=== PATIENT | male | born 1950 | race Caucasian/White ===

== ENCOUNTER 2018-03-31 12:54 | Day surgery (SDC) | payer MEDICARE ==
[~2018-03-31] VITALS: Ht 185.4 cm; Wt 88.2 kg
[~2018-03-31 12:54] MED LIST: ALBU2.5V5 NEB; ALBU90OI INH; AZIT250 PO; Atarax10 MG PO; BREO ELLIPTA 11 EACH INH; CEFP200 PO; CEPH500 PO; COMBIVENT RESPIM4 GM INH; Cleocin HCl300 MG PO; Colace100 MG PO; GLIM4 PO; HYDACE5 PO; INS70/30PN; INSULANPEN SC; LEVSOD100 PO; LOSA50 PO; NADO20; Norco 5-325 Ta1 EACH PO; OLAN5 PO; OMEP10ER PO; OXYC30 PO; OXYC5 PO; Omeprazole20 M1 PO; PRED5 PO; PROM25 PO; RISP.25; Roxicodone5 MG PO; SPIR25 PO; SULTRIDS PO; Super Calcium600 MG PO; TACR1 PO; URSO300 PO; VITAMIN D34000 UNIT PO; Verotin-Gr Cap1 EACH PO; ZYRTEC10 M1 PO; Zofran Odt4 MG PO; Zofran Odt4 MG SL; Zofran Odt8 MG SL; [UNRECOGNIZED DRUG - OTHER] PO
== END 2018-03-31 15:40 | disposition home or self-care (01) ==
LOC: ORSCSDS 12:54
PROVIDERS: Internal Medicine Gastroenterology
PROC: 0D568ZZ Destruction of Stomach, Via Natural or Artificial Opening Endoscopic (ICD-10-PCS; principal; 2018-03-31 14:30)
DX: I85.00 Esophageal varices without bleeding (principal); K31.819 Angiodysplasia of stomach and duodenum without bleeding; K74.69 Other cirrhosis of liver; K76.6 Portal hypertension; K31.89 Other diseases of stomach and duodenum; E11.9 Type 2 diabetes mellitus without complications; Z94.4 Liver transplant status; E03.9 Hypothyroidism, unspecified; J45.909 Unspecified asthma, uncomplicated; I10 Essential (primary) hypertension; E78.00 Pure hypercholesterolemia, unspecified; Z79.4 Long term (current) use of insulin; Z79.899 Other long term (current) drug therapy; Z87.891 Personal history of nicotine dependence
CPT/HCPCS: 82947; J7120

== ENCOUNTER → 2018-05-26 | Outpatient (CLI) | payer MEDICARE | END | disposition home or self-care (01) | LOC: PLD 13:56 → LAB SHORT 13:56 | DX: M20.10 Hallux valgus (acquired), unspecified foot (principal); M79.672 Pain in left foot; E11.621 Type 2 diabetes mellitus with foot ulcer; M21.6X9 Other acquired deformities of unspecified foot | CPT/HCPCS: 88305; 88311 ==

== ENCOUNTER → 2018-09-15 | Outpatient (CLI) | payer MEDICARE ==
[~2018-09-15] MED LIST changes: +ALBU2.5V5 INH; -ALBU2.5V5 NEB; +AMOCLA875 PO; +Amaryl4 MG PO; +Augmentin 875-1 EACH PO; +BISA10S PR; +DOCU100 PO; +Fleet Enema132 ML PR; +GAVILAX17 GM PO; +Hydrocodone-Ap1 EA23 PO; -INS70/30PN; +NOVOLOG FL100 UNIT/1 SC; +VANCO 1.51.5 GM/250 IV; +VANCOMYCIN1.75 GM/17 IV; +VELTASSA8.4 GM PO; +Vsl#3 Capsule1 EACH PO
== END | disposition home or self-care (01) ==
LOC: LAB SHORT 16:28 → LAB 16:28
DX: L97.509 Non-pressure chronic ulcer of other part of unspecified foot with unspecified severity (principal)
CPT/HCPCS: 87070; 87075; 87205

== ENCOUNTER 2018-09-20 08:04 | Inpatient (IN) | payer MEDICARE ==
[~2018-09-20] VITALS: Ht 172.7 cm; Wt 74.8 kg
[~2018-09-20 08:04] MED LIST changes: -ALBU2.5V5 INH; -AMOCLA875 PO; -Amaryl4 MG PO; -Augmentin 875-1 EACH PO; -BISA10S PR; -DOCU100 PO; -Fleet Enema132 ML PR; -GAVILAX17 GM PO; -Hydrocodone-Ap1 EA23 PO; -INSULANPEN SC; -NOVOLOG FL100 UNIT/1 SC; -Super Calcium600 MG PO; -VANCO 1.51.5 GM/250 IV; -VANCOMYCIN1.75 GM/17 IV; -VELTASSA8.4 GM PO; -Verotin-Gr Cap1 EACH PO; -Vsl#3 Capsule1 EACH PO
[2018-09-20 10:02] LABS: Hematocrit 38.8 % (37.0-53.0); Hemoglobin 12.6 g/dL (13.5-17.5); Mean Corpuscular HGB Conc 32.5 g/dL (31.5-36.5); Mean Corpuscular Volume 96 fL (80-100); Mean Platelet Volume 11.3 fL (9.1-12.4); Platelet Count 89 K/mm3 (150-400); RDW Coefficient Variation 12.8 % (11.7-14.2); RDW Standard Deviation 44.9 fL (35.1-46.3); Red Blood Cell Count 4.06 M/mm3 (4.30-5.90); White Blood Cell Count 10.04 K/mm3 (4.00-11.30)
[2018-09-20 10:11] LABS: Albumin/Globulin Ratio 0.8 (0.8-1.8); Bun/Creatinine Ratio 14.9 (12.0-20.0); Calcium, Blood 8.7 mg/dL (8.5-10.1); Creatinine, Blood 1.88 mg/dL (0.60-1.20); Potassium, Blood 5.1 mmol/L (3.5-5.5)
[2018-09-20 10:13] LABS: BASOPHILS PERCENT AUTO 0 % (0-2); EOSINOPHILS ABSOLUTE AUTO 0.01 K/mm3 (0.00-0.68); EOSINOPHILS PERCENT AUTO 0 % (0-6); IMMATURE GRAN PERCENT AUTO 1 % (0-1); LYMPHOCYTES ABSOLUTE AUTO 0.63 K/mm3 (0.84-5.20); LYMPHOCYTES PERCENT AUTO 6 % (21-46); MONOCYTES ABSOLUTE AUTO 0.85 K/mm3 (0.16-1.47); MONOCYTES PERCENT AUTO 8 % (4-13); NEUTROPHILS PERCENT AUTO 85 % (41-73)
[2018-09-20 10:14] LABS: BASOPHILS ABSOLUTE AUTO 0.03 K/mm3 (0.00-0.23); IMMATURE GRAN ABSOLUTE AUTO 0.08 K/mm3 (0.00-0.10)
--- NOTE | 2018-09-20 17:15 | NUR ---
SHIFT SUMMARY ER ADMIT THIS SHIFT WITH R FOOT CELLULITIS R/T NAIL PUNCTURE WOUND. PT ALERT AND ORIENTED. DENIES NEED FOR PAIN MEDICATION. RECEIVED ABX IN ER. CELLULITIS TO R FOOT OUTLINED AND PHOTOS TAKEN OF PUNCTURE WOUND. IV IS SL. UP INDEP TO RESTROOM. USES CALL LIGHT APPROPRIATELY.
[2018-09-21 04:21] LABS: BASOPHILS ABSOLUTE AUTO 0.02 K/mm3 (0.00-0.23); BASOPHILS PERCENT AUTO 0 % (0-2); EOSINOPHILS ABSOLUTE AUTO 0.03 K/mm3 (0.00-0.68); EOSINOPHILS PERCENT AUTO 0 % (0-6); Hematocrit 32.9 % (37.0-53.0); Hemoglobin 10.7 g/dL (13.5-17.5); IMMATURE GRAN ABSOLUTE AUTO 0.03 K/mm3 (0.00-0.10); IMMATURE GRAN PERCENT AUTO 0 % (0-1); LYMPHOCYTES ABSOLUTE AUTO 0.99 K/mm3 (0.84-5.20); LYMPHOCYTES PERCENT AUTO 13 % (21-46); MONOCYTES ABSOLUTE AUTO 0.61 K/mm3 (0.16-1.47); MONOCYTES PERCENT AUTO 8 % (4-13); Mean Corpuscular HGB 30.2 pg (26.0-34.0); Mean Corpuscular HGB Conc 32.5 g/dL (31.5-36.5); Mean Platelet Volume 11.2 fL (9.1-12.4); NEUTROPHILS ABSOLUTE AUTO 6.01 K/mm3 (1.96-9.15); NEUTROPHILS PERCENT AUTO 78 % (41-73); Platelet Count 82 K/mm3 (150-400); RDW Coefficient Variation 12.5 % (11.7-14.2); RDW Standard Deviation 42.5 fL (35.1-46.3); Red Blood Cell Count 3.54 M/mm3 (4.30-5.90); White Blood Cell Count 7.69 K/mm3 (4.00-11.30)
[2018-09-21 04:42] LABS: Mean Corpuscular Volume 93 fL (80-100)
--- NOTE | 2018-09-21 07:43 | NUR ---
SHIFT SUMMARY PT RESTED WELL T/O NIGHT. AAOX4. DISCOMFORT CONTROLLED WITH 2 PAIN PILLS YESTARDAY EVENING. NO NAUSEA/EMESIS. PUNCTURE SITE TO RIGHT FOOT WITH BANDAID IN PLACE, NO INCREASE IN DRAINAGE THIS SHIFT. REDNESS TO RLE OUTLINE PER PREVIOUS DAY SHIFT RN, NO CHANGE THIS SHIFT. INDEPENDENT IN ROOM. GOOD PO INTAKE + OUTPUT. PT RESTING AT THIS TIME. CALL LIGHT IN REACH.
--- NOTE | 2018-09-21 12:18 | NUR ---
ROUNDING: MD IN TO SEE PATIENT. WILL AWAIT ANY NEW ORDERS. DOCTOR STATES PLAN FOR PODIATRY CONSULT.
--- NOTE | 2018-09-21 19:18 | NUR ---
PT HAS BEEN STABLE THIS SHIFT. BLOOD SUGARS NOT REQUIRING COVERAGE. NO WORSENING SWELLING OR REDNESS IN LEFT LEG. ABX CHANGED PER MD. PODIATRY CONSULT ORDERED, HOWEVER MUST BE CALLED TO OFFICE IN THE AM PER THE ANSWERING SERVICE. PT OOB INDEP WITH WALKER. SHOWER THIS AM. PUNCTURE SITE WITH BANDAID, NO DRAINAGE. TEDS TO BLE. EATING AND VOIDING WELL. PAIN MANAGED WITH PRN NORCO. PT USES CALL LIGHT APPROPRIATELY NEEDED.
[2018-09-22 04:06] LABS: BASOPHILS ABSOLUTE AUTO 0.01 K/mm3 (0.00-0.23); BASOPHILS PERCENT AUTO 0 % (0-2); EOSINOPHILS ABSOLUTE AUTO 0.06 K/mm3 (0.00-0.68); EOSINOPHILS PERCENT AUTO 1 % (0-6); Hemoglobin 10.8 g/dL (13.5-17.5); IMMATURE GRAN ABSOLUTE AUTO 0.02 K/mm3 (0.00-0.10); IMMATURE GRAN PERCENT AUTO 0 % (0-1); LYMPHOCYTES ABSOLUTE AUTO 0.89 K/mm3 (0.84-5.20); LYMPHOCYTES PERCENT AUTO 14 % (21-46); MONOCYTES ABSOLUTE AUTO 0.48 K/mm3 (0.16-1.47); MONOCYTES PERCENT AUTO 8 % (4-13); Mean Corpuscular HGB 31.3 pg (26.0-34.0); Mean Corpuscular HGB Conc 33.8 g/dL (31.5-36.5); Mean Corpuscular Volume 93 fL (80-100); Mean Platelet Volume 10.6 fL (9.1-12.4); NEUTROPHILS ABSOLUTE AUTO 4.91 K/mm3 (1.96-9.15); NEUTROPHILS PERCENT AUTO 77 % (41-73); Platelet Count 106 K/mm3 (150-400); RDW Coefficient Variation 12.4 % (11.7-14.2); RDW Standard Deviation 42.5 fL (35.1-46.3); Red Blood Cell Count 3.45 M/mm3 (4.30-5.90); White Blood Cell Count 6.37 K/mm3 (4.00-11.30)
[2018-09-22 04:19] LABS: Bun/Creatinine Ratio 22.3 (12.0-20.0); Calcium, Blood 8.5 mg/dL (8.5-10.1); Creatinine, Blood 1.84 mg/dL (0.60-1.20); Potassium, Blood 4.7 mmol/L (3.5-5.5)
--- NOTE | 2018-09-22 05:54 | NUR ---
SHIFT SUMMARY PT RESTED WELL T/O NIGHT. AAOX4. DISCOMFORT CONTROLLED WITH 1 PAIN PILL. NO NAUSEA/EMESIS. PUNCTURE SITE TO RIGHT FOOT WITH BANDAID IN PLACE, NO DRAINAGE NOTED THIS SHIFT. OUTLINE OF REDNESS STILL WITHIN AREA MARKED ON ADMISSION. IV ABX PER ORDERS. INDEPENDENT IN ROOM. GOOD PO INTAKE + OUTPUT. PT RESTING AT THIS TIME, CALL LIGHT IN REACH. BLANCAN.
--- NOTE | 2018-09-22 15:29 | NUR ---
DR VICTORIA IN TO SEE PT.
--- NOTE | 2018-09-22 17:05 | NUR ---
COMPLETED AND FAXED MRI SCREEN
--- NOTE | 2018-09-22 17:35 | NUR ---
SUMMARY NO ACUTE CHANGES T/O SHIFT. DR VICTORIA IN TO SEE PT THIS AFTERNOON. PLAN FOR MRI OF R FOOT THIS EVENING. IV ABX ADMINISTERED PER ORDERS. CALL LIGHT IN REACH. PT PLEASANT AND COOPERATIVE.
--- NOTE | 2018-09-23 08:02 | NUR ---
SUMMARY PT FEBRILE INITIALLY WITH ASSESSMENT. GAVE NORCO FOR PAIN AND FEVER. PT SLEPT QUIETLY MOST OF SHIFT. HOPING TO GO HOME TODAY.
[2018-09-23 08:52] LABS: Vancomycin, Trough 8.2 ug/mL (5.0-10.0)
--- NOTE | 2018-09-23 17:03 | NUR ---
SUMMARY NO ACUTE CHANGES T/O SHIFT. REDNESS APPEARS TO HAVE RECEDED SLIGHTLY FROM OUTLINED AREA. PT HAS DENIED NEED FOR PAIN MEDICATION. HAS SLEPT OFF AND ON T/O DAY. PLEASANT AND COOPERATIVE. CALL LIGHT IN REACH.
--- NOTE | 2018-09-24 07:34 | NUR ---
PT VSS T/O NIGHT. NO CHANGES IN REDNESS OR SWELLING TO R FOOT. SCANT DRNG TO PUNCTURE WOUND. PT MED FOR PAIN X1 W/REP RELIEF. PT UP INDEP IN ROOM, IS USING CALL LIGHT FOR ASSISTANCE. PLAN FOR PICC LINE PLACEMENT FOR OUT PT IV ABX. REP GIVEN TO DAY RN.
[2018-09-24 09:28] LABS: Vancomycin, Trough 10.8 ug/mL (5.0-10.0)
--- NOTE | 2018-09-24 12:04 | NUR ---
DR. VICTORIA PODIATRY ROUNDED ON PT. HE DEBRIDED PART OF THE FOOT WOUND AND PACKED IT WITH A SMALL AMOUNT OF GAUZE. BANDAID IN PLACE.
--- NOTE | 2018-09-24 14:52 | NUR ---
PICC LINE PLACED
[2018-09-24] MEDS ORDERED: VANCO 1.51.5 GM/250 IV ×2 (16:43)
[2018-09-24] MEDS ORDERED: Augmentin 875-1 EACH PO ×2 (16:44)
--- NOTE | 2018-09-24 17:07 | NUR ---
DISCHARGE OUTPATIENT ABX INFUSIONS SET UP, PICC LINE PLACED, PAIN WELL CONTROLLED. PT STATES UNDERSTANDING OF F/U WITH PCP AND ABI/ER FOR INFUSIONS. ESCORTED OUT VIA W/C.
[2018-10-30] MEDS ORDERED: ALBU2.5V5 INH ×2 (15:43)
[2018-10-30] MEDS ORDERED: Verotin-Gr Cap1 EACH PO ×2 (15:44)
[2018-10-30] MEDS ORDERED: INSULANPEN SC ×2 (15:44)
[2018-10-30] MEDS ORDERED: Super Calcium600 MG PO ×2 (15:44)
== END 2018-09-24 17:08 | disposition home or self-care (01) | DRG 571 ==
LOC: ER 08:04 → SURS 10:53
PROVIDERS: Family Medicine; Physician Assistant; ADMIT Hospitalist
PROC: 0JBQ0ZZ Excision of Right Foot Subcutaneous Tissue and Fascia, Open Approach (ICD-10-PCS; principal; 2018-09-24)
DX: L03.115 Cellulitis of right lower limb (principal); Z94.4 Liver transplant status; E11.42 Type 2 diabetes mellitus with diabetic polyneuropathy; S91.331A Puncture wound without foreign body, right foot, initial encounter; D63.1 Anemia in chronic kidney disease; N18.3 Chronic kidney disease, stage 3 (moderate); E11.22 Type 2 diabetes mellitus with diabetic chronic kidney disease; Z79.4 Long term (current) use of insulin; W45.0XXA Nail entering through skin, initial encounter; Y92.9 Unspecified place or not applicable
CPT/HCPCS: 36415; 36569; 73630; 73718; 80048; 80053; 80197; 80202; 82248; 82565; 82947; 83605; 83735; 84100; 84550; 85025; 87040; 94640; 94760; 96365; 96375; 99283-25; A9270-GY; C1751; J0878; J1170; J2405; J2543; J3370; J7040; J7050; J7507

== ENCOUNTER 2018-09-25 00:13 | Day surgery (SDC) | payer MEDICARE ==
[~2018-09-25 00:13] MED LIST changes: +Augmentin 875-1 EACH PO; +VANCO 1.51.5 GM/250 IV
== END 2018-09-25 10:22 | disposition home or self-care (01) ==
LOC: ATC 00:13
DX: L03.115 Cellulitis of right lower limb (principal); E11.22 Type 2 diabetes mellitus with diabetic chronic kidney disease; N18.3 Chronic kidney disease, stage 3 (moderate); D63.1 Anemia in chronic kidney disease; E11.40 Type 2 diabetes mellitus with diabetic neuropathy, unspecified; F17.210 Nicotine dependence, cigarettes, uncomplicated; Z88.8 Allergy status to other drugs, medicaments and biological substances; Z79.899 Other long term (current) drug therapy; Z79.4 Long term (current) use of insulin
CPT/HCPCS: 96365; 96366; J3370; J7050

== ENCOUNTER 2018-09-26 00:52 | Day surgery (SDC) | payer MEDICARE | END 2018-09-26 09:12 | disposition home or self-care (01) | LOC: ATC 00:52 | DX: L03.115 Cellulitis of right lower limb (principal); E11.42 Type 2 diabetes mellitus with diabetic polyneuropathy; E11.22 Type 2 diabetes mellitus with diabetic chronic kidney disease; N18.3 Chronic kidney disease, stage 3 (moderate); E07.9 Disorder of thyroid, unspecified; F17.210 Nicotine dependence, cigarettes, uncomplicated; D63.1 Anemia in chronic kidney disease; Z94.4 Liver transplant status; Z88.8 Allergy status to other drugs, medicaments and biological substances; Z79.899 Other long term (current) drug therapy; Z79.51 Long term (current) use of inhaled steroids; Z79.4 Long term (current) use of insulin | CPT/HCPCS: 96365; 96366; J3370; J7050 ==

== ENCOUNTER 2018-09-27 10:58 | Day surgery (SDC) | payer MEDICARE ==
[2018-09-27 11:46] LABS: Creatinine, Blood 1.71 mg/dL (0.60-1.20); Vancomycin, Trough 15.7 ug/mL (5.0-10.0)
== END 2018-09-27 14:40 | disposition home or self-care (01) ==
LOC: ATC 10:58
PROVIDERS: Family Medicine
DX: L03.115 Cellulitis of right lower limb (principal); E11.40 Type 2 diabetes mellitus with diabetic neuropathy, unspecified; E11.22 Type 2 diabetes mellitus with diabetic chronic kidney disease; N18.3 Chronic kidney disease, stage 3 (moderate); D63.1 Anemia in chronic kidney disease; E07.9 Disorder of thyroid, unspecified; F17.210 Nicotine dependence, cigarettes, uncomplicated; Z94.4 Liver transplant status; Z88.8 Allergy status to other drugs, medicaments and biological substances; Z79.899 Other long term (current) drug therapy; Z79.51 Long term (current) use of inhaled steroids; Z79.4 Long term (current) use of insulin
CPT/HCPCS: 80202; 82565; 96365; J3370; J7050

== ENCOUNTER 2018-09-28 13:03 | Day surgery (SDC) | payer MEDICARE | END 2018-09-28 14:57 | disposition home or self-care (01) | LOC: ATC 13:03 | DX: L03.115 Cellulitis of right lower limb (principal); E11.40 Type 2 diabetes mellitus with diabetic neuropathy, unspecified; E11.22 Type 2 diabetes mellitus with diabetic chronic kidney disease; N18.3 Chronic kidney disease, stage 3 (moderate); E07.9 Disorder of thyroid, unspecified; D63.1 Anemia in chronic kidney disease; F17.210 Nicotine dependence, cigarettes, uncomplicated; Z94.4 Liver transplant status; Z86.19 Personal history of other infectious and parasitic diseases; Z79.899 Other long term (current) drug therapy; Z79.51 Long term (current) use of inhaled steroids; Z79.4 Long term (current) use of insulin | CPT/HCPCS: 96365; 96366; J3370; J7050 ==

== ENCOUNTER 2018-09-29 00:42 | Day surgery (SDC) | payer MEDICARE | END 2018-09-29 12:07 | disposition home or self-care (01) | LOC: ATC 00:42 | DX: L03.115 Cellulitis of right lower limb (principal); E11.42 Type 2 diabetes mellitus with diabetic polyneuropathy; E11.22 Type 2 diabetes mellitus with diabetic chronic kidney disease; N18.3 Chronic kidney disease, stage 3 (moderate); E07.9 Disorder of thyroid, unspecified; D63.1 Anemia in chronic kidney disease; Z94.4 Liver transplant status; Z86.19 Personal history of other infectious and parasitic diseases; Z88.8 Allergy status to other drugs, medicaments and biological substances; Z79.899 Other long term (current) drug therapy; Z79.51 Long term (current) use of inhaled steroids; Z79.4 Long term (current) use of insulin | CPT/HCPCS: 96365; 96366; J3370; J7050 ==

== ENCOUNTER 2018-09-30 00:25 | Day surgery (SDC) | payer MEDICARE ==
[2018-10-30] MEDS ORDERED: ALBU2.5V5 INH ×2 (15:43)
[2018-10-30] MEDS ORDERED: Verotin-Gr Cap1 EACH PO ×2 (15:44)
[2018-10-30] MEDS ORDERED: INSULANPEN SC ×2 (15:44)
[2018-10-30] MEDS ORDERED: Super Calcium600 MG PO ×2 (15:44)
== END 2018-09-30 23:06 | disposition home or self-care (01) ==
LOC: ATC 00:25
DX: L03.115 Cellulitis of right lower limb (principal); E11.22 Type 2 diabetes mellitus with diabetic chronic kidney disease; N18.3 Chronic kidney disease, stage 3 (moderate); E11.40 Type 2 diabetes mellitus with diabetic neuropathy, unspecified; E07.9 Disorder of thyroid, unspecified; D63.1 Anemia in chronic kidney disease; Z94.4 Liver transplant status; Z86.19 Personal history of other infectious and parasitic diseases; Z88.8 Allergy status to other drugs, medicaments and biological substances; Z79.899 Other long term (current) drug therapy; Z79.51 Long term (current) use of inhaled steroids; Z79.4 Long term (current) use of insulin; Z79.891 Long term (current) use of opiate analgesic

== ENCOUNTER 2018-10-01 00:08 | Day surgery (SDC) | payer MEDICARE ==
[2018-10-30] MEDS ORDERED: ALBU2.5V5 INH ×2 (15:43)
[2018-10-30] MEDS ORDERED: INSULANPEN SC ×2 (15:44)
[2018-10-30] MEDS ORDERED: Super Calcium600 MG PO ×2 (15:44)
[2018-10-30] MEDS ORDERED: Verotin-Gr Cap1 EACH PO ×2 (15:44)
== END 2018-10-01 22:43 | disposition home or self-care (01) ==
LOC: ATC 00:08
DX: L03.115 Cellulitis of right lower limb (principal); E11.40 Type 2 diabetes mellitus with diabetic neuropathy, unspecified; E11.22 Type 2 diabetes mellitus with diabetic chronic kidney disease; N18.3 Chronic kidney disease, stage 3 (moderate); D63.1 Anemia in chronic kidney disease; E07.9 Disorder of thyroid, unspecified; Z79.899 Other long term (current) drug therapy; Z79.51 Long term (current) use of inhaled steroids; Z79.4 Long term (current) use of insulin; Z94.4 Liver transplant status; Z86.19 Personal history of other infectious and parasitic diseases

== ENCOUNTER 2018-10-17 11:55 | Emergency (ER) | payer MEDICARE ==
[~2018-10-17] VITALS: Ht 185.4 cm; Wt 83.9 kg
[2018-10-17 12:40] LABS: Calcium, Ionized (POC) 1.15 mmol/L (1.10-1.46); Chloride (POC) 113 mmol/L (98-108); Creatinine (POC) 2.9 mg/dL (0.8-1.3); Glucose (ISTAT POC) 123 mg/dL (70-99); Hemoglobin (POC) 10.9 g/dL (13.5-17.5); Potassium (POC) 6.7 mmol/L (3.5-5.5); Sodium (POC) 137 mmol/L (135-148); Total CO2 (POC) 16 mmol/L (21-32)
[2018-10-17 13:02] LABS: BASOPHILS ABSOLUTE AUTO 0.03 K/mm3 (0.00-0.23); BASOPHILS PERCENT AUTO 1 % (0-2); EOSINOPHILS ABSOLUTE AUTO 0.09 K/mm3 (0.00-0.68); EOSINOPHILS PERCENT AUTO 2 % (0-6); Hemoglobin 10.8 g/dL (13.5-17.5); IMMATURE GRAN ABSOLUTE AUTO 0.01 K/mm3 (0.00-0.10); IMMATURE GRAN PERCENT AUTO 0 % (0-1); LYMPHOCYTES ABSOLUTE AUTO 0.86 K/mm3 (0.84-5.20); LYMPHOCYTES PERCENT AUTO 15 % (21-46); MONOCYTES ABSOLUTE AUTO 0.37 K/mm3 (0.16-1.47); MONOCYTES PERCENT AUTO 6 % (4-13); Mean Corpuscular HGB 30.9 pg (26.0-34.0); Mean Corpuscular HGB Conc 32.7 g/dL (31.5-36.5); Mean Corpuscular Volume 95 fL (80-100); Mean Platelet Volume 11.6 fL (9.1-12.4); NEUTROPHILS ABSOLUTE AUTO 4.44 K/mm3 (1.96-9.15); NEUTROPHILS PERCENT AUTO 77 % (41-73); Platelet Count 104 K/mm3 (150-400); RDW Coefficient Variation 13.5 % (11.7-14.2); RDW Standard Deviation 46.7 fL (35.1-46.3); Red Blood Cell Count 3.49 M/mm3 (4.30-5.90)
[2018-10-17 13:09] LABS: Magnesium, Blood 1.9 mg/dL (1.6-2.4)
[2018-10-17 13:45] LABS: Albumin, Blood 3.5 g/dL (3.4-5.0); Albumin/Globulin Ratio 0.9 (0.8-1.8); Bilirubin, Total 0.3 mg/dL (0.1-1.0); Bun/Creatinine Ratio 15.4 (12.0-20.0); Calcium, Blood 8.4 mg/dL (8.5-10.1); Creatinine, Blood 2.66 mg/dL (0.60-1.20); Potassium, Blood 6.7 mmol/L (3.5-5.5); Total Protein, Blood 7.5 g/dL (6.4-8.2)
[2018-10-17 16:10] LABS: Calcium, Ionized (POC) 1.62 mmol/L (1.10-1.46); Chloride (POC) 110 mmol/L (98-108); Creatinine (POC) 2.8 mg/dL (0.8-1.3); Glucose (ISTAT POC) 105 mg/dL (70-99); Hemoglobin (POC) 10.2 g/dL (13.5-17.5); Potassium (POC) 6.4 mmol/L (3.5-5.5); Sodium (POC) 140 mmol/L (135-148); Total CO2 (POC) 23 mmol/L (21-32)
[2018-10-17 18:10] LABS: Calcium, Ionized (POC) 1.19 mmol/L (1.10-1.46); Chloride (POC) 109 mmol/L (98-108); Creatinine (POC) 2.5 mg/dL (0.8-1.3); Glucose (ISTAT POC) 135 mg/dL (70-99); Hemoglobin (POC) 9.9 g/dL (13.5-17.5); Potassium (POC) 5.5 mmol/L (3.5-5.5); Sodium (POC) 145 mmol/L (135-148); Total CO2 (POC) 26 mmol/L (21-32)
[2018-10-17] MEDS ORDERED: VELTASSA8.4 GM PO (18:16)
== END 2018-10-17 18:28 | disposition home or self-care (01) ==
LOC: ER 11:55
PROVIDERS: Emergency Medicine
DX: N17.9 Acute kidney failure, unspecified (principal); E87.5 Hyperkalemia; Z88.8 Allergy status to other drugs, medicaments and biological substances; Z79.899 Other long term (current) drug therapy; Z79.4 Long term (current) use of insulin
CPT/HCPCS: 36415; 80047; 80053; 80197; 82248; 83735; 84100; 84550; 85014; 85025; 93005; 93010; 96374; 96375; 96376; 99284-25; J0610; J1815

== ENCOUNTER 2018-10-30 14:32 | Inpatient (IN) | payer MEDICARE ==
[~2018-10-30] VITALS: Ht 185.4 cm; Wt 83.9 kg
[~2018-10-30 14:32] MED LIST changes: +VELTASSA8.4 GM PO
[2018-10-30] MEDS ORDERED: Amaryl4 MG PO (14:57)
[2018-10-30 15:28] LABS: BASOPHILS ABSOLUTE AUTO 0.03 K/mm3 (0.00-0.23); BASOPHILS PERCENT AUTO 1 % (0-2); EOSINOPHILS ABSOLUTE AUTO 0.05 K/mm3 (0.00-0.68); EOSINOPHILS PERCENT AUTO 1 % (0-6); Hematocrit 30.7 % (37.0-53.0); Hemoglobin 10.2 g/dL (13.5-17.5); IMMATURE GRAN ABSOLUTE AUTO 0.01 K/mm3 (0.00-0.10); IMMATURE GRAN PERCENT AUTO 0 % (0-1); LYMPHOCYTES ABSOLUTE AUTO 0.85 K/mm3 (0.84-5.20); LYMPHOCYTES PERCENT AUTO 15 % (21-46); MONOCYTES PERCENT AUTO 9 % (4-13); Mean Corpuscular HGB 30.4 pg (26.0-34.0); Mean Corpuscular HGB Conc 33.2 g/dL (31.5-36.5); Mean Platelet Volume 10.5 fL (9.1-12.4); NEUTROPHILS ABSOLUTE AUTO 4.39 K/mm3 (1.96-9.15); NEUTROPHILS PERCENT AUTO 75 % (41-73); Platelet Count 141 K/mm3 (150-400); RDW Coefficient Variation 12.9 % (11.7-14.2); RDW Standard Deviation 43.1 fL (35.1-46.3); Red Blood Cell Count 3.35 M/mm3 (4.30-5.90); White Blood Cell Count 5.83 K/mm3 (4.00-11.30)
[2018-10-30 15:33] LABS: Mean Corpuscular Volume 92 fL (80-100)
[2018-10-30 15:41] LABS: Albumin, Blood 2.8 g/dL (3.4-5.0); Albumin/Globulin Ratio 0.6 (0.8-1.8); Bilirubin, Total 0.3 mg/dL (0.1-1.0); Bun/Creatinine Ratio 18.5 (12.0-20.0); Calcium, Blood 8.7 mg/dL (8.5-10.1); Creatinine, Blood 1.62 mg/dL (0.60-1.20); Globulin, Blood 4.8 g/dL (2.2-4.0); Potassium, Blood 4.5 mmol/L (3.5-5.5); Total Protein, Blood 7.6 g/dL (6.4-8.2)
[2018-10-30] MEDS ORDERED: Hydrocodone-Ap1 EA23 PO (15:42)
[2018-10-30] MEDS ORDERED: ALBU2.5V5 INH (15:43)
[2018-10-30] MEDS ORDERED: Verotin-Gr Cap1 EACH PO (15:44)
[2018-10-30] MEDS ORDERED: INSULANPEN SC (15:44)
[2018-10-30] MEDS ORDERED: Super Calcium600 MG PO (15:44)
[2018-10-30] MEDS ORDERED: NOVOLOG FL100 UNIT/1 SC (15:45)
--- NOTE | 2018-10-30 19:07 | NUR ---
PT TRANSFERRED FROM ED. LINE DRAWN ON WOUND, DISCUSSED WITH PAIRER SUBSTANDARD AND NIGHT RN THAT GAS WAS SEEN ON XRAY AND TO MONITOR LINE AND MEASUREMENTS OF FOOT CIRCUMFERENCE. FAMILY AT BEDSIDE
--- NOTE | 2018-10-31 05:02 | NUR ---
SHIFT SUMMARY PT PAIN TX PER EMAR. PT NPO SINCE MIDNIGHT. PT HAD NO ISSUES NOTED DURING SHIFT. PT FOOT SHOWS NO SIGNS OF INCREASED SWELLING OR INFECTION SPREAD. PT CURRENTLY SLEEPING IN NO DISTRESS. CALL LIGHT IN REACH.
--- NOTE | 2018-10-31 12:30 | NUR ---
PT TRANSPORTED TO DAY SURGERY VIA STRETCHER ACCOMPANIED BY NERY MEADE AND PT'S SPOUSE.
--- NOTE | 2018-10-31 12:44 | NUR ---
History, Chart, Medications and Allergies reviewed before start of procedure. Patient confirms NPO status and agrees with scheduled surgery. at bedside.
--- NOTE | 2018-10-31 13:57 | NUR ---
PT CURRENTLY OUT OF ROOM FOR I&D.
--- NOTE | 2018-10-31 14:20 | NUR ---
ASSUMED CARE OF PATIENT, REPORT FROM ALON Pitts RN.
--- NOTE | 2018-10-31 16:05 | NUR ---
ARRIVED FROM PACU VIA STRETCHER AWAKE OX3 AND IN NO ACUTE DISTRESS. RIGHT FOOT CARRIE BANDAGE CLEAN DRY AND INTACT. DENIES ANY PAIN AT THIS TIME. FAMILY AT BEDSIDE.
--- NOTE | 2018-10-31 17:37 | NUR ---
SPOUSE AT BEDSIDE PT RESTING WITH EYES CLOSED. DENIES ANY DISTRESS OR PAIN. DRANK APPLE JUICE AND ATE CRACKERS. VSS. AFEBRILE.
--- NOTE | 2018-10-31 18:06 | NUR ---
PT'S WALLET RETURNED TO SECURITY DUE TO DELAY IN PATIENT TRANSPORT TO HOME. RECEIVED BY MONICA WATER PROOFER.
--- NOTE | 2018-11-01 04:05 | NUR ---
SHIFT SUMMARY: PT IS ALERT AND ORIENTED. PT IS CALM AND COOPERATIVE WITH CARE. PT CALLS APPROPRIATELY. PT IS NON-WEIGHT BEARING ON HIS R. FOOT DUE TO RECENT SURGERY, NOT OUT OF BED OVERNIGHT. PT REPORTS PAIN IN THE R. FOOT, MEDICATING PER EMAR. PT DENIES NAUSEA, VOMITING, AND SOB. FAMILY IN VISITING AT THE START OF SHIFT. PT SLEPT INTERMITTENTLY THROUGHOUT THE NIGHT. DRESSING CLEAN, DRY, AND INTACT. NO ACUTE CHANGES OR COMPLICATIONS THIS SHIFT. WILL CONTINUE TO MONITOR.
[2018-11-01 08:42] LABS: BASOPHILS ABSOLUTE AUTO 0.02 K/mm3 (0.00-0.23); BASOPHILS PERCENT AUTO 0 % (0-2); EOSINOPHILS ABSOLUTE AUTO 0.16 K/mm3 (0.00-0.68); EOSINOPHILS PERCENT AUTO 3 % (0-6); Hematocrit 26.5 % (37.0-53.0); Hemoglobin 8.4 g/dL (13.5-17.5); IMMATURE GRAN ABSOLUTE AUTO 0.02 K/mm3 (0.00-0.10); IMMATURE GRAN PERCENT AUTO 0 % (0-1); LYMPHOCYTES ABSOLUTE AUTO 0.76 K/mm3 (0.84-5.20); LYMPHOCYTES PERCENT AUTO 13 % (21-46); MONOCYTES ABSOLUTE AUTO 0.39 K/mm3 (0.16-1.47); MONOCYTES PERCENT AUTO 7 % (4-13); Mean Corpuscular HGB 29.2 pg (26.0-34.0); Mean Corpuscular HGB Conc 31.7 g/dL (31.5-36.5); Mean Corpuscular Volume 92 fL (80-100); Mean Platelet Volume 9.6 fL (9.1-12.4); NEUTROPHILS ABSOLUTE AUTO 4.61 K/mm3 (1.96-9.15); NEUTROPHILS PERCENT AUTO 77 % (41-73); Platelet Count 135 K/mm3 (150-400); RDW Coefficient Variation 12.7 % (11.7-14.2); RDW Standard Deviation 42.7 fL (35.1-46.3); Red Blood Cell Count 2.88 M/mm3 (4.30-5.90); White Blood Cell Count 5.96 K/mm3 (4.00-11.30)
[2018-11-01 08:59] LABS: Albumin, Blood 2.5 g/dL (3.4-5.0); Albumin/Globulin Ratio 0.6 (0.8-1.8); Bilirubin, Total 0.3 mg/dL (0.1-1.0); Bun/Creatinine Ratio 15.3 (12.0-20.0); Calcium, Blood 8.2 mg/dL (8.5-10.1); Creatinine, Blood 1.57 mg/dL (0.60-1.20); Globulin, Blood 4.4 g/dL (2.2-4.0); Potassium, Blood 4.7 mmol/L (3.5-5.5); Total Protein, Blood 6.9 g/dL (6.4-8.2)
--- NOTE | 2018-11-01 16:30 | NUR ---
PT IS A/OX3, PLEASANT AND COOPERATIVE, THE PT IS UP WITH ASSIST NON-WEIGHT BEARING ON THE RIGHT FOOT, THE PT WAS MEDICATED FOR PAIN T/O THE DAY, THE PT DENIED N/V, TODAY THE PT WAS ABLE TO GET OUT OF BED AND AMBULATE SOMEWHAT USEING THE FWW ACCOMPANIED BY THE PHYSICAL THERAPIST, THE PT APPEARS TO BE BREATHING EASILY AT THIS TIME ON RA, CALL LIGHT IN REACH, WILL CONTINUE TO MONITOR FOR CHANGES
--- NOTE | 2018-11-02 04:29 | NUR ---
SHIFT SUMMARY: PT IS ALERT AND ORIENTED. PT IS CALM AND COOPERATIVE WITH CARE. PT CALLS APPROPRIATELY. PT NOT OUT OF BED OVERNIGHT. PT CONTINUES TO HAVE R. FOOT PAIN BUT IT HAS BEEN BETTER CONTROLLED THIS SHIFT THAN LAST, MEDICATING PER EMAR. PT DENIES NAUSEA, VOMITING, AND SOB. PT SLEPT MUCH OF THE NIGHT WHEN NOT DISTURBED. NO ACUTE CHANGES OR COMPLICATIONS THIS SHIFT. BED IN LOW POSITION, CALL LIGHT WITHIN REACH. WILL CONTINUE TO MONITOR.
[2018-11-02 14:23] LABS: Creatinine, Blood 1.66 mg/dL (0.60-1.20); Vancomycin, Trough 12.3 ug/mL (5.0-10.0)
--- NOTE | 2018-11-02 18:04 | NUR ---
PT IS A/OX3, PLEASANT AND COOPERATIVE, THE PT WAS UP INTO THE CHAIR TODAY, THE PT WAS GIVEN AND INSTRUCTED TO USE AN INCENTIVE SPIROMETER, THE PT WAS MEDICATED FOR RIGHT FOOT PAIN X 4 TODAY, THE PT APPEARS TO BE BREATHING EASILY ON RA AT THIS TIME, THE PT HAD VISITOR TODAY, CALL LIGHT IN REACH, WILL CONTINUE TO MONITOR AND ASSESS FOR CHANGES
[2018-11-03 04:43] LABS: BASOPHILS ABSOLUTE AUTO 0.02 K/mm3 (0.00-0.23); BASOPHILS PERCENT AUTO 0 % (0-2); EOSINOPHILS ABSOLUTE AUTO 0.12 K/mm3 (0.00-0.68); EOSINOPHILS PERCENT AUTO 3 % (0-6); Hematocrit 22.6 % (37.0-53.0); Hemoglobin 7.3 g/dL (13.5-17.5); IMMATURE GRAN ABSOLUTE AUTO 0.01 K/mm3 (0.00-0.10); IMMATURE GRAN PERCENT AUTO 0 % (0-1); LYMPHOCYTES ABSOLUTE AUTO 0.82 K/mm3 (0.84-5.20); LYMPHOCYTES PERCENT AUTO 18 % (21-46); MONOCYTES PERCENT AUTO 9 % (4-13); Mean Corpuscular HGB 29.7 pg (26.0-34.0); Mean Corpuscular HGB Conc 32.3 g/dL (31.5-36.5); Mean Corpuscular Volume 92 fL (80-100); Mean Platelet Volume 10.2 fL (9.1-12.4); NEUTROPHILS ABSOLUTE AUTO 3.31 K/mm3 (1.96-9.15); NEUTROPHILS PERCENT AUTO 71 % (41-73); Platelet Count 121 K/mm3 (150-400); RDW Coefficient Variation 12.5 % (11.7-14.2); RDW Standard Deviation 42.2 fL (35.1-46.3); Red Blood Cell Count 2.46 M/mm3 (4.30-5.90); White Blood Cell Count 4.68 K/mm3 (4.00-11.30)
[2018-11-03 05:05] LABS: Albumin, Blood 2.1 g/dL (3.4-5.0); Albumin/Globulin Ratio 0.5 (0.8-1.8); Bilirubin, Total 0.4 mg/dL (0.1-1.0); Bun/Creatinine Ratio 14.5 (12.0-20.0); Calcium, Blood 8.1 mg/dL (8.5-10.1); Creatinine, Blood 1.59 mg/dL (0.60-1.20); Globulin, Blood 4.1 g/dL (2.2-4.0); Potassium, Blood 4.2 mmol/L (3.5-5.5); Total Protein, Blood 6.2 g/dL (6.4-8.2)
--- NOTE | 2018-11-03 05:16 | NUR ---
SHIFT SUMMARY: PT IS ALERT AND ORIENTED. PT IS CALM AND COOPERATIVE WITH CARE. PT CALLS APPROPRIATELY. PT NOT OUT OF BED OVERNIGHT. PT CONTINUES TO HAVE R. FOOT PAIN, MEDICATING PER EMAR. PT DENIES NAUSEA, VOMITING, AND SOB. PT SLEPT MUCH OF THE NIGHT WHEN NOT DISTURBED. FAMILY IN VISITING AT THE START OF THE NIGHT. NO ACUTE CHANGES OR COMPLICATIONS THIS SHIFT. BED IN LOW POSITION, CALL LIGHT WITHIN REACH. WILL REPORT TO DAY NURSE.
--- NOTE | 2018-11-03 13:44 | NUR ---
STARTED I UNIT PRBS SO FAR VS WNL PT TOLERATING WELL BREATHING EASILY
[2018-11-03 16:33] LABS: Hematocrit 24.1 % (37.0-53.0)
--- NOTE | 2018-11-03 18:11 | NUR ---
PT IS A/OX3, PLEASANT AND COOPERATIVE, THE PT IS UP WITH ASSIST, THE PT TODAY WAS UP USEING THE FWW IN HIS ROOM WITH THE OCUPATIONAL THERAPIST, AND WORKED WITH THE PHYSICAL THERAPIST IN HIS BED, THE PT WAS UP IN THE CHAIR FOR A COULPLE HOURS FOR LUNCH, THE PT USED HIS INCENTIVE SPIROMETER, THE PT RECIEVED 1 UNIT PRBC'S AND TOLERATED THE TRANSFUSION WELL, CALL LIGHT IN REACH, WILL CONTINUE TO MONITOR AND ASSESS FOR CHANGES
--- NOTE | 2018-11-04 04:05 | NUR ---
SHIFT SUMMARY PT REMAINS ALERT AND ORIENTED. DILAUDID WAS GIVEN TO PT FOR PAIN TO GOOD EFFECT. PT HAD NO OTHER COMPLAINTS FROM THE PT AT THIS TIME. VSS. WILL CONTINUE TO MONITOR.
[2018-11-04 07:34] LABS: Hematocrit 26.9 % (37.0-53.0)
[2018-11-04 08:04] LABS: Bun/Creatinine Ratio 15.2 (12.0-20.0); Calcium, Blood 8.4 mg/dL (8.5-10.1); Creatinine, Blood 1.58 mg/dL (0.60-1.20); Potassium, Blood 4.6 mmol/L (3.5-5.5)
[2018-11-04 16:09] LABS: Vancomycin, Trough 17.6 ug/mL (5.0-10.0)
--- NOTE | 2018-11-04 18:34 | NUR ---
SHIFT SUMMARY MD AWARE OF NOT YET HAVING A PICC LINE. HAS BEEN UP TO AMBULATE WITH P.T. USING FWW AND FOLLOWING NON WEIGHT BEARING PRECAUTIONS. DOES STATE PAIN IN R FOOT GETS BAD BUT ORAL PAIN MEDS GIVEN DID REDUCE PAIN WELL. DRESSING IN PLACE AND C/D/I. DR. ARMIREZ IN TO SEE PT AND STATED HE DIDN'T WANT DRESSING CHANGED BUT TO LEAVE IT ALONE FOR NOW. NO FEVERS.
--- NOTE | 2018-11-05 07:20 | NUR ---
NOC SHIFT SUMMARY PT PLEASANT AND COOPERATIVE WITH CARE. PARTIAL SURG REMOVAL OF R FOOT, DRESSING C/D/I. VSS. PT WAS TREATED FOR PAIN ONCE THIS NIGHT AND WAS ABLE TO SLEEP THE REST OF THE NIGHT. AWAKES EASILY TO VOICE. NO ACUTE CHANGES OVER THE NIGHT. APPEARS IN NO ACUTE DISTRESS. REPORT TO ONCOMING RN.
--- NOTE | 2018-11-05 15:01 | NUR ---
Echocardiogram completed.
--- NOTE | 2018-11-05 19:18 | NUR ---
shift summary pt reports he has no appetite today. states he feels very constipated. had asked for a shower after lunch but then changed his mind. spoke with this evening when pt didn't have bm today and obtained order for lactulose. dressing to r foot c/d/i.
--- NOTE | 2018-11-06 05:53 | NUR ---
SHIFT SUMMARY PT ADMITTED FOR OSTEOMYELITIS OF THE R FOOT. CONTACT ISOLATION FOR MRSA IN ABCESS/BLOOD. FULL CODE. ADA DIET. NON-WEIGHT BEARING R LEG. ELEVATE R LEG. PICC LINE ORDERED FOR LONG-TERM ANTIBIOTIC TREATMENT OUTPATIENT. CBG BEFORE MEALS. LACTULOSE X2 THIS SHIFT ORDERED TO ASSIST WITH CONSTIPATION, NO RESULTS SO FAR THIS SHIFT. PT HAS APPEARED TO TOLLERATE WELL. PT PREFERS TO HAVE DOOR CLOSED AND TO NOT BE DESTURBED MUCH POSSIBLE, CLUSTERED CARE WHEN POSSIBLE. PT HAS APPEARED TO SLEEP COMFORTABLY MOST OF THE NIGHT WITH NO APPARENT SIGNS OF ACUTE DISTRESS SO FAR THIS SHIFT. ABLE TO MAKE NEEDS KNOWN AND CALL LIGHT IN REACH.
--- NOTE | 2018-11-06 18:21 | NUR ---
SHIFT SUMMARY PT LAYING IN HIS ROOM IN THE DARK THIS MORNING DECLINING BREAKFAST STATING HE JUST CAN'T EAT DUE TO BEING SO CONSTIPATED. BOWEL CARE BEING PROVIDED. PRUNES LEFT AT BEDSIDE. ENCOURAGED DRINKING H2O. DISCUSSED TAKING A SHOWER WELL. DID HAVE A SMALL BM WHILE WORKING WITH P.T. AND AGAIN AFTER HIS SHOWER BUT ONLY AFTER HE GOT A SUPPOSITORY DID HE STATE HE HAD RESULTS WITH A MEDIUM HARD BM WHICH HELPED HIM FEEL BETTER AND HE DID EAT SUPPER. SHOWER WAS TAKEN AND HE REPORTS FEELING BETTER AFTER THAT WELL. DRESSING TO RLE REMAINS INTACT WITH NO BREAKTHROUGH DRAINAGE.
--- NOTE | 2018-11-07 04:23 | NUR ---
SHIFT SUMMARY: PT IS ALERT AND ORIENTED. PT IS CALM AND COOPERATIVE WITH CARE. PT CALLS APPROPRIATELY. PT REPORTS ONGOING R. FOOT PAIN, MEDICATING PER EMAR. PT DENIES NAUSEA, VOMIITNG, AND SOB. PT TO HAVE PICC PLACED FOR OUTPT ANTIBIOTICS. PT SLEPT MUCH OF THE NIGHT WHEN NOT DISTURBED. NO ACUTE CHANGES OR COMPLICATIONS THIS SHIFT. BED IN LOW POSITION, CALL LIGHT WITHIN REACH. WILL REPORT TO DAY NURSE.
[2018-11-07] MEDS ORDERED: BISA10S PR (13:36)
[2018-11-07] MEDS ORDERED: AMOCLA875 PO (13:36)
[2018-11-07] MEDS ORDERED: DOCU100 PO (13:37)
[2018-11-07] MEDS ORDERED: OXYC5 PO (13:38)
[2018-11-07] MEDS ORDERED: Vsl#3 Capsule1 EACH PO (13:38)
[2018-11-07] MEDS ORDERED: GAVILAX17 GM PO (13:39)
[2018-11-07] MEDS ORDERED: Fleet Enema132 ML PR (13:40)
[2018-11-07] MEDS ORDERED: VANCOMYCIN1.75 GM/17 IV (13:40)
[2018-11-07 14:55] LABS: Creatinine, Blood 1.24 mg/dL (0.60-1.20); Vancomycin, Trough 21.4 ug/mL (5.0-10.0)
--- NOTE | 2018-11-07 15:00 | NUR ---
VANCO HELD 1500 VANCO DOSE HELD TILL 1600 DUE TO SUPRATHERAPUTIC LEVEL OF 21.4. CHRISTO VALDIVIA INSTRUCTED TO START VANCO AT 1600 & LET RUN UNTIL DONE OR UNTIL PT LEAVES. WILL CONTINUE TO MONITOR.
--- NOTE | 2018-11-07 15:26 | NUR ---
REPORT CALLED TO NURSE FELIX. FELIX DENIED ANY FURTHER QUESTIONS. FELIX INFORMED THAT PT IS BEING SENT WITH A PG INSTEAD OF A PICC. 4 DIFFERENT NURSES ATTEMPTED A PICC & FAILED AT ACCESS. FOR THIS REASON A PG WAS PLACE. PT WILL NEED TO RETURN TO [facility] FOR NEW PG AFTER 29 DAYS.
--- NOTE | 2018-11-07 16:30 | NUR ---
PT DISCHARGED PT DISCHARGED AT 1627. PT IN STABLE CONDITION WITH VSS. PT RECIEVED 34CC OF PM ABELO. PT DENIES QUESTIONS AT THIS TIME. REPORT CALLED TO UV. PG PATENT IN L UA. PT TRANSPORTED VIA [facility].
== END 2018-11-07 16:27 | DRG 239 ==
LOC: ER 14:32 → MEDS 17:49
PROVIDERS: Emergency Medicine; Family Medicine; Podiatrist Foot & Ankle Surgery; ADMIT Hospitalist
PROC: 0Y6M0Z9 Detachment at Right Foot, Partial 1st Ray, Open Approach (ICD-10-PCS; principal; 2018-10-30)
PROC: 0Y6M0ZB Detachment at Right Foot, Partial 2nd Ray, Open Approach (ICD-10-PCS; 2018-10-30)
PROC: 0Y6M0ZC Detachment at Right Foot, Partial 3rd Ray, Open Approach (ICD-10-PCS; 2018-10-30)
PROC: 0Y6M0ZD Detachment at Right Foot, Partial 4th Ray, Open Approach (ICD-10-PCS; 2018-10-30)
PROC: 0Y6M0ZF Detachment at Right Foot, Partial 5th Ray, Open Approach (ICD-10-PCS; 2018-10-30)
DX: E11.52 Type 2 diabetes mellitus with diabetic peripheral angiopathy with gangrene (principal); A48.0 Gas gangrene; Z94.4 Liver transplant status; M86.171 Other acute osteomyelitis, right ankle and foot; E11.621 Type 2 diabetes mellitus with foot ulcer; Z79.4 Long term (current) use of insulin; Z89.422 Acquired absence of other left toe(s); E11.40 Type 2 diabetes mellitus with diabetic neuropathy, unspecified; N18.3 Chronic kidney disease, stage 3 (moderate); E11.22 Type 2 diabetes mellitus with diabetic chronic kidney disease; F17.210 Nicotine dependence, cigarettes, uncomplicated; D63.1 Anemia in chronic kidney disease; F19.94 Other psychoactive substance use, unspecified with psychoactive substance-induced mood disorder; K59.00 Constipation, unspecified; Z79.84 Long term (current) use of oral hypoglycemic drugs; B95.62 Methicillin resistant Staphylococcus aureus infection as the cause of diseases classified elsewhere; L97.514 Non-pressure chronic ulcer of other part of right foot with necrosis of bone
CPT/HCPCS: 36415; 36430; 73630; 80048; 80053; 80202; 82565; 82947; 83036; 83605; 85014; 85018; 85025; 85651; 86140; 86850; 86870; 86900; 86901; 86902; 86905; 86922; 87040; 87070; 87075; 87077; 87147; 87185; 87186; 87205; 88307; 88311; 93005; 93010; 93306; 96361; 96365; 96375; 97110; 97116; 97161; 97166; 97530; 97535; 99284-25; J0171; J0692; J1170; J2405; J2543; J2704; J2765; J3010; J3370; J7050; J7120; J7507; P9016

== ENCOUNTER 2018-11-26 00:02 | Day surgery (SDC) | payer MEDICARE ==
[~2018-11-26 00:02] MED LIST changes: +ALBU2.5V5 INH; +AMOCLA875 PO; +Amaryl4 MG PO; +BISA10S PR; +DOCU100 PO; +Fleet Enema132 ML PR; +GAVILAX17 GM PO; +Hydrocodone-Ap1 EA23 PO; +INSULANPEN SC; +NOVOLOG FL100 UNIT/1 SC; +Super Calcium600 MG PO; +VANCOMYCIN1.75 GM/17 IV; +Verotin-Gr Cap1 EACH PO; +Vsl#3 Capsule1 EACH PO
[2018-11-26 14:42] LABS: Creatinine, Blood 1.82 mg/dL (0.60-1.20); Vancomycin, Trough 18.9 ug/mL (5.0-10.0)
== END 2018-11-26 15:18 | disposition home or self-care (01) ==
LOC: ATC 00:02
PROVIDERS: Family Medicine
DX: R78.81 Bacteremia (principal); B95.62 Methicillin resistant Staphylococcus aureus infection as the cause of diseases classified elsewhere; E11.22 Type 2 diabetes mellitus with diabetic chronic kidney disease; N18.3 Chronic kidney disease, stage 3 (moderate); D63.1 Anemia in chronic kidney disease; E11.40 Type 2 diabetes mellitus with diabetic neuropathy, unspecified; K59.00 Constipation, unspecified; E03.9 Hypothyroidism, unspecified; Z88.8 Allergy status to other drugs, medicaments and biological substances; Z89.431 Acquired absence of right foot; Z94.4 Liver transplant status
CPT/HCPCS: 36592; 80202; 82565

== ENCOUNTER 2018-11-27 00:30 | Day surgery (SDC) | payer MEDICARE | END 2018-11-27 15:25 | disposition home or self-care (01) | LOC: ATC 00:30 | DX: R78.81 Bacteremia (principal); B95.62 Methicillin resistant Staphylococcus aureus infection as the cause of diseases classified elsewhere; E11.22 Type 2 diabetes mellitus with diabetic chronic kidney disease; N18.3 Chronic kidney disease, stage 3 (moderate); D63.1 Anemia in chronic kidney disease; E11.40 Type 2 diabetes mellitus with diabetic neuropathy, unspecified; Z89.431 Acquired absence of right foot; Z88.8 Allergy status to other drugs, medicaments and biological substances; Z79.899 Other long term (current) drug therapy; Z79.4 Long term (current) use of insulin | CPT/HCPCS: 96365; 96366; J3370; J7050 ==

== ENCOUNTER 2018-11-29 13:13 | Day surgery (SDC) | payer MEDICARE ==
[2018-11-29 14:15] LABS: Glomerular Filtration Rate 50 (60-)
== END 2018-11-29 14:54 | disposition home or self-care (01) ==
LOC: ATC 13:13
PROVIDERS: Family Medicine
DX: R78.81 Bacteremia (principal); B95.62 Methicillin resistant Staphylococcus aureus infection as the cause of diseases classified elsewhere; E11.22 Type 2 diabetes mellitus with diabetic chronic kidney disease; N18.3 Chronic kidney disease, stage 3 (moderate); D63.1 Anemia in chronic kidney disease; E11.40 Type 2 diabetes mellitus with diabetic neuropathy, unspecified; K59.00 Constipation, unspecified; Z88.8 Allergy status to other drugs, medicaments and biological substances; Z89.431 Acquired absence of right foot; Z94.4 Liver transplant status
CPT/HCPCS: 80202; 82565; 96365; 96366; J3370; J7050

== ENCOUNTER 2018-12-01 00:05 | Day surgery (SDC) | payer MEDICARE | END 2018-12-01 15:13 | disposition home or self-care (01) | LOC: ATC 00:05 | DX: R78.81 Bacteremia (principal); B95.62 Methicillin resistant Staphylococcus aureus infection as the cause of diseases classified elsewhere; E11.22 Type 2 diabetes mellitus with diabetic chronic kidney disease; N18.3 Chronic kidney disease, stage 3 (moderate); D63.1 Anemia in chronic kidney disease; E11.42 Type 2 diabetes mellitus with diabetic polyneuropathy; Z88.8 Allergy status to other drugs, medicaments and biological substances; Z79.899 Other long term (current) drug therapy; Z79.4 Long term (current) use of insulin; Z89.421 Acquired absence of other right toe(s) | CPT/HCPCS: 96365; 96366; J3370; J7050 ==

== ENCOUNTER 2018-12-03 07:13 | Day surgery (SDC) | payer MEDICARE ==
[2018-12-03 14:13] LABS: Creatinine, Blood 1.58 mg/dL (0.60-1.20); Vancomycin, Trough 9.7 ug/mL (5.0-10.0)
== END 2018-12-03 15:45 | disposition home or self-care (01) ==
LOC: ATC 07:13
PROVIDERS: Family Medicine
DX: R78.81 Bacteremia (principal); B95.62 Methicillin resistant Staphylococcus aureus infection as the cause of diseases classified elsewhere; E11.40 Type 2 diabetes mellitus with diabetic neuropathy, unspecified; E11.22 Type 2 diabetes mellitus with diabetic chronic kidney disease; N18.3 Chronic kidney disease, stage 3 (moderate); D63.1 Anemia in chronic kidney disease; E03.9 Hypothyroidism, unspecified; K59.00 Constipation, unspecified; Z94.4 Liver transplant status; Z88.8 Allergy status to other drugs, medicaments and biological substances; Z89.431 Acquired absence of right foot
CPT/HCPCS: 80202; 82565; 96365; C1751; J3370

== ENCOUNTER 2018-12-04 13:33 | Day surgery (SDC) | payer MEDICARE | END 2018-12-04 15:20 | disposition home or self-care (01) | LOC: ATC 13:33 | DX: R78.81 Bacteremia (principal); B95.62 Methicillin resistant Staphylococcus aureus infection as the cause of diseases classified elsewhere; E11.22 Type 2 diabetes mellitus with diabetic chronic kidney disease; N18.3 Chronic kidney disease, stage 3 (moderate); D63.1 Anemia in chronic kidney disease; E11.40 Type 2 diabetes mellitus with diabetic neuropathy, unspecified; E03.9 Hypothyroidism, unspecified; F17.200 Nicotine dependence, unspecified, uncomplicated; Z88.8 Allergy status to other drugs, medicaments and biological substances; Z79.899 Other long term (current) drug therapy; Z79.51 Long term (current) use of inhaled steroids; Z79.4 Long term (current) use of insulin; Z89.421 Acquired absence of other right toe(s) | CPT/HCPCS: 96365; J3370 ==

== ENCOUNTER 2018-12-05 00:40 | Day surgery (SDC) | payer MEDICARE | END 2018-12-05 11:00 | disposition home or self-care (01) | LOC: ATC 00:40 | DX: R78.81 Bacteremia (principal); B95.62 Methicillin resistant Staphylococcus aureus infection as the cause of diseases classified elsewhere; E11.40 Type 2 diabetes mellitus with diabetic neuropathy, unspecified; E11.22 Type 2 diabetes mellitus with diabetic chronic kidney disease; N18.3 Chronic kidney disease, stage 3 (moderate); E03.9 Hypothyroidism, unspecified; F17.210 Nicotine dependence, cigarettes, uncomplicated; Z88.8 Allergy status to other drugs, medicaments and biological substances; Z79.899 Other long term (current) drug therapy; Z89.421 Acquired absence of other right toe(s) | CPT/HCPCS: 96365; 96366; J3370 ==

== ENCOUNTER 2018-12-06 09:06 | Day surgery (SDC) | payer MEDICARE ==
[2018-12-06 09:47] LABS: Creatinine, Blood 1.62 mg/dL (0.60-1.20); Vancomycin, Trough 16.9 ug/mL (5.0-10.0)
== END 2018-12-06 11:25 | disposition home or self-care (01) ==
LOC: ATC 09:06
DX: R78.81 Bacteremia (principal); B95.62 Methicillin resistant Staphylococcus aureus infection as the cause of diseases classified elsewhere; E11.42 Type 2 diabetes mellitus with diabetic polyneuropathy; E11.22 Type 2 diabetes mellitus with diabetic chronic kidney disease; N18.3 Chronic kidney disease, stage 3 (moderate); D63.1 Anemia in chronic kidney disease; F17.210 Nicotine dependence, cigarettes, uncomplicated; Z79.899 Other long term (current) drug therapy; Z79.4 Long term (current) use of insulin; Z88.8 Allergy status to other drugs, medicaments and biological substances; Z89.421 Acquired absence of other right toe(s)
CPT/HCPCS: 80202; 82565; 96365; J3370

== ENCOUNTER 2018-12-07 09:37 | Day surgery (SDC) | payer MEDICARE | END 2018-12-07 11:06 | disposition home or self-care (01) | LOC: ATC 09:37 | DX: R78.81 Bacteremia (principal); B95.62 Methicillin resistant Staphylococcus aureus infection as the cause of diseases classified elsewhere; E11.40 Type 2 diabetes mellitus with diabetic neuropathy, unspecified; E11.22 Type 2 diabetes mellitus with diabetic chronic kidney disease; N18.3 Chronic kidney disease, stage 3 (moderate); D63.1 Anemia in chronic kidney disease; E03.9 Hypothyroidism, unspecified; Z89.431 Acquired absence of right foot; Z88.8 Allergy status to other drugs, medicaments and biological substances; Z79.899 Other long term (current) drug therapy; Z79.51 Long term (current) use of inhaled steroids; Z79.4 Long term (current) use of insulin | CPT/HCPCS: 96365; J3370 ==

== ENCOUNTER 2018-12-08 00:18 | Day surgery (SDC) | payer MEDICARE | END 2018-12-08 14:58 | disposition home or self-care (01) | LOC: ATC 00:18 | DX: R78.81 Bacteremia (principal); B95.62 Methicillin resistant Staphylococcus aureus infection as the cause of diseases classified elsewhere; E11.40 Type 2 diabetes mellitus with diabetic neuropathy, unspecified; E11.22 Type 2 diabetes mellitus with diabetic chronic kidney disease; N18.3 Chronic kidney disease, stage 3 (moderate); D63.1 Anemia in chronic kidney disease; E03.9 Hypothyroidism, unspecified; F17.200 Nicotine dependence, unspecified, uncomplicated; Z89.431 Acquired absence of right foot | CPT/HCPCS: 96365; J3370 ==

== ENCOUNTER 2018-12-09 00:18 | Day surgery (SDC) | payer MEDICARE ==
[2018-12-09 14:43] LABS: Creatinine, Blood 1.75 mg/dL (0.60-1.20); Vancomycin, Trough 16.8 ug/mL (5.0-10.0)
== END 2018-12-09 16:17 | disposition home or self-care (01) ==
LOC: ATC 00:18
PROVIDERS: Family Medicine
DX: R78.81 Bacteremia (principal); B95.62 Methicillin resistant Staphylococcus aureus infection as the cause of diseases classified elsewhere; E11.22 Type 2 diabetes mellitus with diabetic chronic kidney disease; N18.3 Chronic kidney disease, stage 3 (moderate); D63.1 Anemia in chronic kidney disease; E11.40 Type 2 diabetes mellitus with diabetic neuropathy, unspecified; K59.00 Constipation, unspecified; E03.9 Hypothyroidism, unspecified; Z88.8 Allergy status to other drugs, medicaments and biological substances; Z89.431 Acquired absence of right foot; Z94.4 Liver transplant status
CPT/HCPCS: 80202; 82565; 96365; J3370

== ENCOUNTER 2018-12-10 00:06 | Day surgery (SDC) | payer MEDICARE | END 2018-12-10 15:09 | disposition home or self-care (01) | LOC: ATC 00:06 | DX: R78.81 Bacteremia (principal); B95.62 Methicillin resistant Staphylococcus aureus infection as the cause of diseases classified elsewhere; E11.22 Type 2 diabetes mellitus with diabetic chronic kidney disease; N18.3 Chronic kidney disease, stage 3 (moderate); D63.1 Anemia in chronic kidney disease; E11.40 Type 2 diabetes mellitus with diabetic neuropathy, unspecified; K59.00 Constipation, unspecified; E03.9 Hypothyroidism, unspecified; Z89.421 Acquired absence of other right toe(s); Z94.4 Liver transplant status; Z88.8 Allergy status to other drugs, medicaments and biological substances | CPT/HCPCS: 96365; J3370 ==

== ENCOUNTER 2018-12-11 00:04 | Day surgery (SDC) | payer MEDICARE | END 2018-12-11 15:23 | disposition home or self-care (01) | LOC: ATC 00:04 | DX: R78.81 Bacteremia (principal); B95.62 Methicillin resistant Staphylococcus aureus infection as the cause of diseases classified elsewhere; E11.22 Type 2 diabetes mellitus with diabetic chronic kidney disease; N18.3 Chronic kidney disease, stage 3 (moderate); D63.1 Anemia in chronic kidney disease; E11.40 Type 2 diabetes mellitus with diabetic neuropathy, unspecified; K59.00 Constipation, unspecified; E03.9 Hypothyroidism, unspecified; F17.200 Nicotine dependence, unspecified, uncomplicated; Z89.421 Acquired absence of other right toe(s) | CPT/HCPCS: 96365; J3370 ==

== ENCOUNTER 2018-12-12 01:10 | Day surgery (SDC) | payer MEDICARE | END 2018-12-12 15:45 | disposition home or self-care (01) | LOC: ATC 01:10 | DX: R78.81 Bacteremia (principal); E11.22 Type 2 diabetes mellitus with diabetic chronic kidney disease; N18.3 Chronic kidney disease, stage 3 (moderate); D63.1 Anemia in chronic kidney disease; E11.40 Type 2 diabetes mellitus with diabetic neuropathy, unspecified; E03.9 Hypothyroidism, unspecified; Z89.431 Acquired absence of right foot; Z79.899 Other long term (current) drug therapy; Z79.51 Long term (current) use of inhaled steroids; Z79.4 Long term (current) use of insulin | CPT/HCPCS: 96365; 96366; J3370 ==

== ENCOUNTER → 2019-01-13 | Outpatient (CLI) | payer MEDICARE ==
[~2019-01-13] MED LIST changes: +BREO ELLIPTA 11 EACH; +GABA300; +GLIM4
[2019-01-14 14:27] LABS: Stool Occult Bld Immuno 1 Negative (NEGATIVE)
== END | disposition home or self-care (01) ==
LOC: LAB 16:51 → LAB SHORT 16:51
PROVIDERS: Internal Medicine Gastroenterology
DX: D64.9 Anemia, unspecified (principal)
CPT/HCPCS: 82274

== ENCOUNTER 2019-01-21 09:07 | Day surgery (SDC) | payer MEDICARE ==
[~2019-01-21] VITALS: Ht 185.4 cm; Wt 90.1 kg
--- NOTE | 2019-01-21 10:05 | NUR ---
01/21/19 1004 JOSE ALFREDO BAEZ PT WAS CLEARED FOR MRSA, PT ALSO SAID WENT THROUGH DRUG TRIALS AND NO LONGER HAS HEP C.
== END 2019-01-21 11:41 | disposition home or self-care (01) ==
LOC: ORSCSDS 09:07
PROVIDERS: Internal Medicine Gastroenterology
PROC: 0DBK8ZX Excision of Ascending Colon, Via Natural or Artificial Opening Endoscopic, Diagnostic (ICD-10-PCS; principal; 2019-01-21 10:30)
PROC: 0DBP8ZX Excision of Rectum, Via Natural or Artificial Opening Endoscopic, Diagnostic (ICD-10-PCS; principal; 2019-01-21 10:30)
DX: Z12.11 Encounter for screening for malignant neoplasm of colon (principal); D12.2 Benign neoplasm of ascending colon; K62.1 Rectal polyp; D37.5 Neoplasm of uncertain behavior of rectum; D37.4 Neoplasm of uncertain behavior of colon; K57.30 Diverticulosis of large intestine without perforation or abscess without bleeding; Z86.010 Personal history of colon polyps; E11.40 Type 2 diabetes mellitus with diabetic neuropathy, unspecified; Z94.0 Kidney transplant status; Z79.4 Long term (current) use of insulin; Z79.899 Other long term (current) drug therapy; Z87.891 Personal history of nicotine dependence
CPT/HCPCS: 82947; 88305; J2704; J7120

== ENCOUNTER 2019-05-26 08:23 | Emergency (ER) | payer MEDICARE | END 2019-05-26 10:08 | disposition left against medical advice (07) | LOC: ER 08:23 | DX: Z53.21 Procedure and treatment not carried out due to patient leaving prior to being seen by health care provider (principal) ==

== ENCOUNTER 2019-06-30 10:02 | Emergency (ER) | payer MEDICARE, OTHER ==
[~2019-06-30] VITALS: Ht 185.4 cm; Wt 93.0 kg
[2019-06-30 11:04] LABS: BASOPHILS ABSOLUTE AUTO 0.02 K/mm3 (0.00-0.23); BASOPHILS PERCENT AUTO 0 % (0-2); EOSINOPHILS ABSOLUTE AUTO 0.07 K/mm3 (0.00-0.68); EOSINOPHILS PERCENT AUTO 1 % (0-6); Hematocrit 38.2 % (37.0-53.0); Hemoglobin 12.6 g/dL (13.5-17.5); IMMATURE GRAN ABSOLUTE AUTO 0.01 K/mm3 (0.00-0.10); IMMATURE GRAN PERCENT AUTO 0 % (0-1); LYMPHOCYTES ABSOLUTE AUTO 1.01 K/mm3 (0.84-5.20); LYMPHOCYTES PERCENT AUTO 17 % (21-46); MONOCYTES ABSOLUTE AUTO 0.37 K/mm3 (0.16-1.47); MONOCYTES PERCENT AUTO 6 % (4-13); Mean Corpuscular HGB 29.8 pg (26.0-34.0); Mean Corpuscular Volume 90 fL (80-100); Mean Platelet Volume 11.3 fL (9.1-12.4); NEUTROPHILS ABSOLUTE AUTO 4.45 K/mm3 (1.96-9.15); NEUTROPHILS PERCENT AUTO 75 % (41-73); Platelet Count 108 K/mm3 (150-400); RDW Coefficient Variation 13.1 % (11.7-14.2); Red Blood Cell Count 4.23 M/mm3 (4.30-5.90); White Blood Cell Count 5.93 K/mm3 (4.00-11.30)
[2019-06-30 11:20] LABS: Albumin, Blood 3.1 g/dL (3.4-5.0); Albumin/Globulin Ratio 0.8 (0.8-1.8); Bilirubin, Total 0.8 mg/dL (0.1-1.0); Bun/Creatinine Ratio 13.3 (12.0-20.0); Calcium, Blood 8.3 mg/dL (8.5-10.1); Creatinine, Blood 1.96 mg/dL (0.60-1.20); Globulin, Blood 3.8 g/dL (2.2-4.0); Potassium, Blood 4.8 mmol/L (3.5-5.5); Total Protein, Blood 6.9 g/dL (6.4-8.2); Troponin I 0.063 ng/mL (0.000-0.040)
== END 2019-06-30 14:41 | disposition home or self-care (01) ==
LOC: ER 10:02
PROVIDERS: Emergency Medicine
DX: J98.9 Respiratory disorder, unspecified (principal); B97.89 Other viral agents as the cause of diseases classified elsewhere; Z87.891 Personal history of nicotine dependence; Z20.828 Contact with and (suspected) exposure to other viral communicable diseases
CPT/HCPCS: 36415; 71045; 80053; 84145; 84484; 85025; 93005; 93010; 99284-25

== ENCOUNTER → 2019-07-01 | Outpatient (CLI) | payer MEDICARE | END | disposition home or self-care (01) | LOC: LAB SHORT 15:34 → LAB 15:34 | DX: J15.9 Unspecified bacterial pneumonia (principal) | CPT/HCPCS: 87070; 87205 ==

== ENCOUNTER → 2019-09-17 | Outpatient (CLI) | payer MEDICARE ==
[~2019-09-17] MED LIST changes: +BUME2 PO; +FUROSEMIDE20 MG PO; +GLIMEPIRIDE4 MG PO; +Klor-Con 1010 MEQ PO; +LOSARTAN POTASS25 M2 PO; +Lopressor 25 mg25 MG PO; +NEURONTIN300 MG PO; +OLANZAPINE5 M1 PO; +OMEP20ER PO; +SYNTHROID100 MCG PO; +TACROLIMUS0.5 MG PO; +TAMS.4ER PO; +URSODIOL300 MG PO; +VITAMIN D31000 UNI1 PO; -VITAMIN D34000 UNIT PO
== END ==
LOC: LAB 19:19 → LAB SHORT 19:19
DX: E11.621 Type 2 diabetes mellitus with foot ulcer (principal); L97.509 Non-pressure chronic ulcer of other part of unspecified foot with unspecified severity
CPT/HCPCS: 87070; 87077; 87147; 87186; 87205

== ENCOUNTER 2019-10-12 17:26 | Inpatient (IN) | payer MEDICARE ==
[~2019-10-12] VITALS: Ht 185.4 cm; Wt 87.4 kg
[~2019-10-12 17:26] MED LIST changes: -BUME2 PO; -FUROSEMIDE20 MG PO; -GLIMEPIRIDE4 MG PO; -Klor-Con 1010 MEQ PO; -LOSARTAN POTASS25 M2 PO; -Lopressor 25 mg25 MG PO; -NEURONTIN300 MG PO; -OLANZAPINE5 M1 PO; -OMEP20ER PO; -SYNTHROID100 MCG PO; -TACROLIMUS0.5 MG PO; -TAMS.4ER PO; -URSODIOL300 MG PO
[2019-10-12 18:19] LABS: BASOPHILS ABSOLUTE AUTO 0.03 K/mm3 (0.00-0.23); BASOPHILS PERCENT AUTO 1 % (0-2); EOSINOPHILS ABSOLUTE AUTO 0.08 K/mm3 (0.00-0.68); EOSINOPHILS PERCENT AUTO 2 % (0-6); Hematocrit 38.8 % (37.0-53.0); Hemoglobin 11.7 g/dL (13.5-17.5); IMMATURE GRAN ABSOLUTE AUTO 0.01 K/mm3 (0.00-0.10); IMMATURE GRAN PERCENT AUTO 0 % (0-1); LYMPHOCYTES ABSOLUTE AUTO 1.13 K/mm3 (0.84-5.20); LYMPHOCYTES PERCENT AUTO 27 % (21-46); MONOCYTES ABSOLUTE AUTO 0.32 K/mm3 (0.16-1.47); MONOCYTES PERCENT AUTO 8 % (4-13); Mean Corpuscular HGB 27.8 pg (26.0-34.0); Mean Corpuscular HGB Conc 30.2 g/dL (31.5-36.5); Mean Corpuscular Volume 92 fL (80-100); Mean Platelet Volume 12.1 fL (9.1-12.4); NEUTROPHILS PERCENT AUTO 63 % (41-73); Platelet Count 81 K/mm3 (150-400); RDW Coefficient Variation 14.1 % (11.7-14.2); RDW Standard Deviation 47.8 fL (35.1-46.3); Red Blood Cell Count 4.21 M/mm3 (4.30-5.90); White Blood Cell Count 4.27 K/mm3 (4.00-11.30)
[2019-10-12 18:46] LABS: Albumin, Blood 3.2 g/dL (3.4-5.0); Albumin/Globulin Ratio 0.9 (0.8-1.8); Bilirubin, Total 0.2 mg/dL (0.1-1.0); Bun/Creatinine Ratio 16.6 (12.0-20.0); Calcium, Blood 8.3 mg/dL (8.5-10.1); Creatinine, Blood 3.5 mg/dL (0.60-1.20); Globulin, Blood 3.6 g/dL (2.2-4.0); Potassium, Blood 5.9 mmol/L (3.5-5.5); Total Protein, Blood 6.8 g/dL (6.4-8.2); Troponin I 0.045 ng/mL (0.000-0.040)
[2019-10-12] MEDS ORDERED: LOSARTAN POTASS25 M2 PO (19:04)
[2019-10-12] MEDS ORDERED: Klor-Con 1010 MEQ PO (19:04)
[2019-10-12] MEDS ORDERED: SYNTHROID100 MCG PO (19:05)
[2019-10-12] MEDS ORDERED: TACROLIMUS0.5 MG PO (19:05)
[2019-10-12] MEDS ORDERED: OMEP20ER PO (19:05)
[2019-10-12] MEDS ORDERED: OLANZAPINE5 M1 PO (19:06)
[2019-10-12] MEDS ORDERED: GLIMEPIRIDE4 MG PO (19:06)
[2019-10-12] MEDS ORDERED: NEURONTIN300 MG PO (19:06)
[2019-10-12] MEDS ORDERED: URSODIOL300 MG PO (19:08)
[2019-10-12] MEDS ORDERED: FUROSEMIDE20 MG PO (19:09)
[2019-10-13 02:25] LABS: Bun/Creatinine Ratio 16.9 (12.0-20.0); Calcium, Blood 8.6 mg/dL (8.5-10.1); Creatinine, Blood 3.44 mg/dL (0.60-1.20); Potassium, Blood 5.7 mmol/L (3.5-5.5); Troponin I 0.046 ng/mL (0.000-0.040)
[2019-10-13 09:16] LABS: Bun/Creatinine Ratio 17.6 (12.0-20.0); Calcium, Blood 8.4 mg/dL (8.5-10.1); Creatinine, Blood 3.23 mg/dL (0.60-1.20)
[2019-10-13 10:56] LABS: Automated BF WBC Count 0.306 K/mm3 (0-999); Body Fluid WBC Count 306 /mm3 (0-999)
[2019-10-13 11:04] LABS: Protein, Body Fluid 2.8 g/dL
[2019-10-13 11:05] LABS: Glucose, Body Fluid 136 mg/dL
[2019-10-13 11:07] LABS: Lactate Dehydrogenase, Body Fl 57 U/L
[2019-10-13 11:29] LABS: RBC Count, Body Fluid 47 /mm3 (0-0)
[2019-10-13 12:00] LABS: Color, Body Fluid L Yellow (None-Yellow); Total Cell Count, Body Fluid 100
[2019-10-13 12:01] LABS: Appearance, Body Fluid Clear (Clear)
[2019-10-13 16:28] LABS: Source, Urine Catheter
[2019-10-13 16:36] LABS: Bilirubin, Urine Neg (Neg); Blood, Urine 2+ (Neg); Glucose Qualitative, Urine Neg (Neg); Ketones, Urine Neg (Neg); Leukocyte Esterase, Urine Neg (Neg); Nitrite, Urine Neg (Neg); Protein, Urine 2+ (Neg); Urobilinogen, Urine NORM (Normal)
[2019-10-13 16:44] LABS: Appearance, Urine Clear (Clear); Color, Urine Yellow (P-Yellow)
[2019-10-13 16:45] LABS: White Blood Cells, Urine 0-2 /hpf (0-5)
[2019-10-13 16:46] LABS: Bacteria Few /hpf; Squamous Epithelial Cells Not Seen /hpf (Few)
[2019-10-14 05:11] LABS: Hematocrit 36.8 % (37.0-53.0); Hemoglobin 11.7 g/dL (13.5-17.5)
[2019-10-14 05:32] LABS: Albumin, Blood 3.1 g/dL (3.4-5.0); Anion Gap 4 mmol/L (6-16); Blood Urea Nitrogen 54 mg/dL (8-24); Bun/Creatinine Ratio 17.1 (12.0-20.0); CO2, Blood 27 mmol/L (21-32); Calcium, Blood 8.3 mg/dL (8.5-10.1); Chloride, Blood 109 mmol/L (98-108); Creatinine, Blood 3.15 mg/dL (0.60-1.20); Glomerular Filtration Rate 21 (60-); Glucose, Blood 108 mg/dL (70-99); Magnesium, Blood 1.6 mg/dL (1.6-2.4); Phosphorus, Blood 4.5 mg/dL (2.5-4.9); Potassium, Blood 4.8 mmol/L (3.5-5.5); Sodium, Blood 140 mmol/L (136-145)
[2019-10-15 05:17] LABS: Hematocrit 36.7 % (37.0-53.0); Hemoglobin 11.7 g/dL (13.5-17.5)
[2019-10-15 05:42] LABS: Anion Gap 6 mmol/L (6-16); Blood Urea Nitrogen 53 mg/dL (8-24); Bun/Creatinine Ratio 17.9 (12.0-20.0); CO2, Blood 26 mmol/L (21-32); Calcium, Blood 7.9 mg/dL (8.5-10.1); Chloride, Blood 106 mmol/L (98-108); Creatinine, Blood 2.96 mg/dL (0.60-1.20); Glomerular Filtration Rate 23 (60-); Glucose, Blood 121 mg/dL (70-99); Magnesium, Blood 1.6 mg/dL (1.6-2.4); Phosphorus, Blood 4.9 mg/dL (2.5-4.9); Potassium, Blood 4.8 mmol/L (3.5-5.5); Sodium, Blood 138 mmol/L (136-145)
[2019-10-15] MEDS ORDERED: BUME2 PO (11:51)
[2019-10-15] MEDS ORDERED: Lopressor 25 mg25 MG PO (11:53)
[2019-10-15] MEDS ORDERED: TAMS.4ER PO (11:53)
== END 2019-10-15 14:10 | disposition home or self-care (01) | DRG 683 ==
LOC: ER 17:26 → MEDS 20:45 → ENPENDDIS 10-15 09:32 → MEDS 10-15 14:10
PROVIDERS: Internal Medicine; Internal Medicine Nephrology; Physician Assistant; ADMIT Internal Medicine
PROC: 0W993ZZ Drainage of Right Pleural Cavity, Percutaneous Approach (ICD-10-PCS; principal; 2019-10-13)
DX: N17.9 Acute kidney failure, unspecified (principal); I13.0 Hypertensive heart and chronic kidney disease with heart failure and stage 1 through stage 4 chronic kidney disease, or unspecified chronic kidney disease; I50.22 Chronic systolic (congestive) heart failure; J90 Pleural effusion, not elsewhere classified; Z94.4 Liver transplant status; E87.2 Acidosis; E11.22 Type 2 diabetes mellitus with diabetic chronic kidney disease; N18.4 Chronic kidney disease, stage 4 (severe); E87.5 Hyperkalemia; Z79.899 Other long term (current) drug therapy; E03.9 Hypothyroidism, unspecified; D69.6 Thrombocytopenia, unspecified; Z87.891 Personal history of nicotine dependence; D64.9 Anemia, unspecified; E11.40 Type 2 diabetes mellitus with diabetic neuropathy, unspecified
CPT/HCPCS: 32555; 36415; 71045; 76770; 80048; 80053; 80069; 80197; 81001; 82140; 82945; 82947; 83036; 83605; 83615; 83735; 84132; 84153; 84157; 84443; 84484; 85014; 85018; 85025; 87040; 87081; 89051; 93005; 93010; 94760; 96365; 99285-25; A9270-GY; C8929; J1815; J1940; J7507; Q9957

== ENCOUNTER → 2019-11-24 | Outpatient (CLI) | payer MEDICARE ==
[~2019-11-24] MED LIST changes: +BASAGLAR K100 UNIT/1 SC; +BUME2 PO; +DAYVIGO5 MG PO; +FUROSEMIDE20 MG PO; +GLIMEPIRIDE4 MG PO; -INSULANPEN SC; +Klor-Con 1010 MEQ PO; +LOSARTAN POTASS25 M2 PO; +Lopressor 25 mg25 MG PO; +NEURONTIN300 MG PO; -NOVOLOG FL100 UNIT/1 SC; +NOVOLOG FL100 UNIT/3 SC; +OLANZAPINE5 M1 PO; +OMEP20ER PO; +PANTOPRAZOLE SO40 M2 PO; +SODIUM BICARBO650 MG PO; +SYNTHROID100 MCG PO; +TACROLIMUS0.5 M1 PO; +TACROLIMUS0.5 MG PO; +TAMS.4ER PO; +TIROSINT100 MC1 PO; +URSODIOL300 M1 PO; +URSODIOL300 MG PO
[2019-11-24 11:29] LABS: Percent Saturation 22.9 % (20.0-50.0)
[2019-11-24 13:30] LABS: Albumin, Blood 3.4 g/dL (3.4-5.0); Anion Gap 4 mmol/L (6-16); Blood Urea Nitrogen 31 mg/dL (8-24); Bun/Creatinine Ratio 11.8 (12.0-20.0); CO2, Blood 20 mmol/L (21-32); Calcium, Blood 8.5 mg/dL (8.5-10.1); Chloride, Blood 114 mmol/L (98-108); Creatinine, Blood 2.62 mg/dL (0.60-1.20); Glomerular Filtration Rate 26 (60-); Glucose, Blood 116 mg/dL (70-99); Phosphorus, Blood 3.7 mg/dL (2.5-4.9); Potassium, Blood 6.7 mmol/L (3.5-5.5); Sodium, Blood 138 mmol/L (136-145)
== END | disposition home or self-care (01) ==
LOC: OLS 10:49 → LAB SHORT 10:49 → LAB FUT 01-07 16:50
PROVIDERS: Internal Medicine Nephrology
DX: N18.3 Chronic kidney disease, stage 3 (moderate) (principal); D63.1 Anemia in chronic kidney disease; D51.8 Other vitamin B12 deficiency anemias; D52.8 Other folate deficiency anemias; D50.9 Iron deficiency anemia, unspecified
CPT/HCPCS: 36415; 80069; 82607; 82728; 82746; 83540; 83550

== ENCOUNTER 2019-12-07 15:52 | Inpatient (IN) | payer OTHER, MEDICARE ==
[~2019-12-07] VITALS: Ht 182.9 cm; Wt 89.5 kg
[~2019-12-07 15:52] MED LIST changes: -DAYVIGO5 MG PO; -PANTOPRAZOLE SO40 M2 PO; -SODIUM BICARBO650 MG PO; -TACROLIMUS0.5 M1 PO; -TIROSINT100 MC1 PO; -URSODIOL300 M1 PO
[2019-12-07 16:37] LABS: BASOPHILS ABSOLUTE AUTO 0.02 K/mm3 (0.00-0.23); BASOPHILS PERCENT AUTO 1 % (0-2); EOSINOPHILS ABSOLUTE AUTO 0.06 K/mm3 (0.00-0.68); EOSINOPHILS PERCENT AUTO 1 % (0-6); Hematocrit 35.2 % (37.0-53.0); Hemoglobin 11.1 g/dL (13.5-17.5); IMMATURE GRAN ABSOLUTE AUTO 0.03 K/mm3 (0.00-0.10); IMMATURE GRAN PERCENT AUTO 1 % (0-1); LYMPHOCYTES ABSOLUTE AUTO 0.77 K/mm3 (0.84-5.20); LYMPHOCYTES PERCENT AUTO 18 % (21-46); MONOCYTES ABSOLUTE AUTO 0.43 K/mm3 (0.16-1.47); MONOCYTES PERCENT AUTO 10 % (4-13); Mean Corpuscular HGB 28.5 pg (26.0-34.0); Mean Corpuscular HGB Conc 31.5 g/dL (31.5-36.5); Mean Corpuscular Volume 91 fL (80-100); Mean Platelet Volume 11.2 fL (9.1-12.4); NEUTROPHILS PERCENT AUTO 70 % (41-73); Platelet Count 100 K/mm3 (150-400); RDW Coefficient Variation 17.2 % (11.7-14.2); RDW Standard Deviation 56.8 fL (35.1-46.3); Red Blood Cell Count 3.89 M/mm3 (4.30-5.90); White Blood Cell Count 4.41 K/mm3 (4.00-11.30)
[2019-12-07 16:51] LABS: Albumin, Blood 3.3 g/dL (3.4-5.0); Albumin/Globulin Ratio 0.9 (0.8-1.8); Bilirubin, Total 0.5 mg/dL (0.1-1.0); Bun/Creatinine Ratio 16.9 (12.0-20.0); Calcium, Blood 8.8 mg/dL (8.5-10.1); Creatinine, Blood 1.77 mg/dL (0.60-1.20); Globulin, Blood 3.7 g/dL (2.2-4.0)
[2019-12-07 18:26] LABS: International Normalized Ratio 1.11; Prothrombin Time Results 11.8 Sec (9.7-11.5)
[2019-12-07] MEDS ORDERED: TIROSINT100 MC1 PO (18:40)
[2019-12-07] MEDS ORDERED: TACROLIMUS0.5 M1 PO (18:40)
[2019-12-07] MEDS ORDERED: LOSARTAN POTASS25 M2 PO (18:42)
[2019-12-07] MEDS ORDERED: PANTOPRAZOLE SO40 M2 PO (18:43)
[2019-12-07] MEDS ORDERED: SODIUM BICARBO650 MG PO (18:43)
[2019-12-07] MEDS ORDERED: URSODIOL300 M1 PO (18:44)
[2019-12-08 05:02] LABS: BASOPHILS ABSOLUTE AUTO 0.03 K/mm3 (0.00-0.23); BASOPHILS PERCENT AUTO 1 % (0-2); EOSINOPHILS ABSOLUTE AUTO 0.05 K/mm3 (0.00-0.68); EOSINOPHILS PERCENT AUTO 1 % (0-6); Hematocrit 34.9 % (37.0-53.0); IMMATURE GRAN PERCENT AUTO 0 % (0-1); LYMPHOCYTES ABSOLUTE AUTO 0.86 K/mm3 (0.84-5.20); LYMPHOCYTES PERCENT AUTO 20 % (21-46); MONOCYTES ABSOLUTE AUTO 0.43 K/mm3 (0.16-1.47); MONOCYTES PERCENT AUTO 10 % (4-13); Mean Corpuscular HGB 28.4 pg (26.0-34.0); Mean Corpuscular HGB Conc 31.5 g/dL (31.5-36.5); Mean Corpuscular Volume 90 fL (80-100); Mean Platelet Volume 11.9 fL (9.1-12.4); NEUTROPHILS PERCENT AUTO 68 % (41-73); Platelet Count 93 K/mm3 (150-400); RDW Standard Deviation 56.2 fL (35.1-46.3); Red Blood Cell Count 3.87 M/mm3 (4.30-5.90); White Blood Cell Count 4.27 K/mm3 (4.00-11.30)
[2019-12-08 05:21] LABS: Albumin, Blood 3.2 g/dL (3.4-5.0); Albumin/Globulin Ratio 0.9 (0.8-1.8); Bilirubin, Total 0.5 mg/dL (0.1-1.0); Bun/Creatinine Ratio 16.5 (12.0-20.0); Calcium, Blood 8.9 mg/dL (8.5-10.1); Globulin, Blood 3.4 g/dL (2.2-4.0); Potassium, Blood 4.8 mmol/L (3.5-5.5); Total Protein, Blood 6.6 g/dL (6.4-8.2)
--- NOTE | 2019-12-08 06:05 | NUR ---
SHIFT SUMMARY- PT. NEW ADMIT FROM ED. ARRIVED VIA STRETCHER, INDEPENDENTLY AMBULATED TO THE BED W/O DIFFICULTY. A&OX4, PLEASANT AND COOPERATIVE WITH CARE. NO COMPLAINTS T/O THE NIGHT. NPO AFTER MN FOR THORACENTESIS TODAY. VSS. RESTING QUIETLY IN BED, NO APPARENT DISTRESS NOTED. CALL LIGHT WITHIN REACH AND SIDE RAILS UP X2. WILL CONT TO MONITOR.
--- NOTE | 2019-12-08 16:45 | NUR ---
SHIFT SUMMARY PT IS AOX4. PT IS VERY SOB TODAY ESPECIALLY LAYING DOWN ON HIS BACK. PT STATED HOB ELEVATED MAKES IT BETTER; 2L O2 NEEDED. PT THORACENTESIS CANCELLED TODAY DUE TO LOVENOX ADMINISTRATION LAST NIGHT @2100. DUE TO THE POSTPONED THORACENTESIS, ANGIOGRAM IS ALSO POSTPONED AND SCHEDULED FOR TOMORROW. PT IS PLACED ON NPO ON MIDNIGHT TODAY; HOLD OFF ON LOVENOX FOR PROCEDURE TOMORROW. PT IS ON TELE- S[place]Y @106; DENIES CP. BED IS IN THE LOWEST POSITION; CALL LIGHTS WITHIN REACH AND WILL CONT MONITOR.
[2019-12-09 05:15] LABS: Hematocrit 37.7 % (37.0-53.0); Hemoglobin 11.4 g/dL (13.5-17.5)
[2019-12-09] MEDS ORDERED: DAYVIGO5 MG PO (05:30)
[2019-12-09] MEDS ORDERED: OLAN5 PO (05:32)
[2019-12-09] MEDS ORDERED: URSO300 PO (05:34)
[2019-12-09] MEDS ORDERED: OMEP20ER PO (05:37)
[2019-12-09 05:46] LABS: Albumin, Blood 3.2 g/dL (3.4-5.0); Anion Gap 7 mmol/L (6-16); Blood Urea Nitrogen 35 mg/dL (8-24); Bun/Creatinine Ratio 16.9 (12.0-20.0); CHOL/HDL RATIO 4.5; CO2, Blood 26 mmol/L (21-32); Calcium, Blood 8.7 mg/dL (8.5-10.1); Chloride, Blood 107 mmol/L (98-108); Cholesterol 131 mg/dL (50-200); Creatinine, Blood 2.07 mg/dL (0.60-1.20); Glomerular Filtration Rate 34 (60-); Glucose, Blood 133 mg/dL (70-99); HDL Cholesterol 29 mg/dL (>39); LDL/HDL RATIO 2.8; Low Density Lipoprotein Chol 80 mg/dL (0-110); Magnesium, Blood 1.8 mg/dL (1.6-2.4); Phosphorus, Blood 5.1 mg/dL (2.5-4.9); Potassium, Blood 4.7 mmol/L (3.5-5.5); Sodium, Blood 140 mmol/L (136-145); Triglycerides 108 mg/dL (30-160); Very Low Density Lipoprot Chol 21 mg/dL (6-32)
--- NOTE | 2019-12-09 06:11 | NUR ---
SHIFT SUMMARY PT IS A 69 Y/O MALE, ADMITTED FOR A PLEURAL EFFUSION. HE IS A&O X 4, INDEPENDENT IN THE ROOM. NO COMPLAINTS OF PAIN, NAUSEA OR SOB. PT DID REQUEST A SLEEP AID DURING THE NIGHT, AND WAS MEDICATED WITH MELATONIN AFTER REPORTING TO HOSPITALIST MAGGIE LEWIS. VITAL SIGNS STABLE. PT HAS BEEN NPO SINCE MIDNIGHT IN PREP FOR THORACENTESIS TODAY. NO OTHER ACUTE CHANGES IN PT CONDITION NOTED. WILL CONTINUE TO MONITOR AND TREAT PER EMAR UNTIL HAND OFF TO DAY SHIFT RN.
--- NOTE | 2019-12-09 10:03 | NUR ---
PT TAKEN TO THORACENTESIS, AND WILL HEAD TO ANGIOGRAM, PT WILL BE TRANSFERRED TO PCU 6, I GAVE REPORT TO NERY WILLIS.
--- NOTE | 2019-12-09 11:56 | NUR ---
RECEIVED REPORT FROM NERY ROMO ON MEDICAL FLOOR AND FLO FROM CELL RELINER. PT TO ROOM AT 1140; RIGHT RADIAL WITH TR BAND; NO BRUISING, HEMATOMA OR BLEEDING NOTED AT SITE; RIGHT BRACHIAL VENOUS ACCESS; BLEEDING NOTED; WILL CONTINUE TO MONITOR. PT AND SPOUSE ORIENTED TO ROOM AND CALL LIGHT. EDUCATED ON FALL RISK; BED IN LOW, ALARM ON AND CALL LIGHT WITHIN REACH. PT A&Ox3; CALM AND COOPERATIVE WITH CARE. WILL CONTINUE TO MONITOR.
--- NOTE | 2019-12-09 18:43 | NUR ---
COBRA TRANSFER TO [facility] RIGHT RADIAL SITE RECOVERED; SLIGHT AMOUNT OF BRUISING TO RIGHT WRIST. RIGHT BRACHIAL SITE HAS SMALL AMOUNT OF BLEEDING FROM TRANSFER TO ROOM. PT A&Ox4; FORGETFUL. PT SBA IN ROOM. PT DENIES PAIN, SOB, NAUSEA AND DIZZINESS. VSS. NO OTHER ACUTE CHANGES NOTED. REPORT GIVEN TO NIRMALA AT [facility]. PT LEFT ROOM AT 1840 VIA Paper[employer].
== END 2019-12-09 18:41 | disposition short-term general hospital (02) | DRG 287 ==
LOC: ER 15:52 → MEDS 15:53 → ER 12-08 11:53 → MEDS 12-08 11:53 → PCU 12-09 09:58
PROVIDERS: Emergency Medicine; Internal Medicine Nephrology; Physician Assistant; ADMIT Internal Medicine
PROC: 8E0ZXY6 Isolation (ICD-10-PCS; 2019-12-07)
PROC: 0W993ZZ Drainage of Right Pleural Cavity, Percutaneous Approach (ICD-10-PCS; 2019-12-08)
PROC: 4A023N8 Measurement of Cardiac Sampling and Pressure, Bilateral, Percutaneous Approach (ICD-10-PCS; principal; 2019-12-09)
PROC: B2111ZZ Fluoroscopy of Multiple Coronary Arteries using Low Osmolar Contrast (ICD-10-PCS; 2019-12-09)
DX: I13.0 Hypertensive heart and chronic kidney disease with heart failure and stage 1 through stage 4 chronic kidney disease, or unspecified chronic kidney disease (principal); I50.20 Unspecified systolic (congestive) heart failure; J90 Pleural effusion, not elsewhere classified; J98.11 Atelectasis; Z94.4 Liver transplant status; N17.9 Acute kidney failure, unspecified; I25.110 Atherosclerotic heart disease of native coronary artery with unstable angina pectoris; K74.60 Unspecified cirrhosis of liver; E11.22 Type 2 diabetes mellitus with diabetic chronic kidney disease; N18.3 Chronic kidney disease, stage 3 (moderate); D63.1 Anemia in chronic kidney disease; D69.6 Thrombocytopenia, unspecified; Z20.828 Contact with and (suspected) exposure to other viral communicable diseases; E78.5 Hyperlipidemia, unspecified; E03.9 Hypothyroidism, unspecified; I27.20 Pulmonary hypertension, unspecified; R40.2412 Glasgow coma scale score 13-15, at arrival to emergency department; E11.40 Type 2 diabetes mellitus with diabetic neuropathy, unspecified; I87.2 Venous insufficiency (chronic) (peripheral); K21.9 Gastro-esophageal reflux disease without esophagitis; E66.3 Overweight; Z68.24 Body mass index [BMI] 24.0-24.9, adult; Z87.891 Personal history of nicotine dependence; Z79.4 Long term (current) use of insulin; Z89.431 Acquired absence of right foot; Z86.718 Personal history of other venous thrombosis and embolism
CPT/HCPCS: 32555; 36415; 71045; 76937; 80053; 80061; 80069; 82947; 83735; 83880; 84439; 84443; 84484; 85014; 85018; 85025; 85347; 85610; 85730; 92978; 92979; 93005; 93010; 93308; 93321; 93460; 94640; 94760; 96372; 96374; 99152; 99153; 99285-25; A9270-GY; C1753; C1769; C1887; C1894; G0378; J1650; J2250; J3010; J7030; J7040; J7050; J7507; Q9967; U0002

== ENCOUNTER 2019-12-28 15:07 | Inpatient (IN) | payer MEDICARE ==
[~2019-12-28] VITALS: Ht 185.4 cm; Wt 86.8 kg
[~2019-12-28 15:07] MED LIST changes: +DAYVIGO5 MG PO; +PANTOPRAZOLE SO40 M2 PO; +SODIUM BICARBO650 MG PO; +TACROLIMUS0.5 M1 PO; +TIROSINT100 MC1 PO; +URSODIOL300 M1 PO
[2019-12-28] MEDS ORDERED: OMEP20ER PO ×2 (15:24→18:02)
[2019-12-28] MEDS ORDERED: PROGRAF0.5 MG PO (15:24)
[2019-12-28] MEDS ORDERED: Isosorbide Mono30 MG PO (15:24)
[2019-12-28] MEDS ORDERED: Crestor20 MG PO (15:24)
[2019-12-28 15:40] LABS: BASOPHILS ABSOLUTE AUTO 0.02 K/mm3 (0.00-0.23); BASOPHILS PERCENT AUTO 0 % (0-2); EOSINOPHILS PERCENT AUTO 1 % (0-6); Hemoglobin 11.8 g/dL (13.5-17.5); IMMATURE GRAN ABSOLUTE AUTO 0.03 K/mm3 (0.00-0.10); IMMATURE GRAN PERCENT AUTO 0 % (0-1); LYMPHOCYTES ABSOLUTE AUTO 1.13 K/mm3 (0.84-5.20); LYMPHOCYTES PERCENT AUTO 16 % (21-46); MONOCYTES ABSOLUTE AUTO 0.45 K/mm3 (0.16-1.47); MONOCYTES PERCENT AUTO 6 % (4-13); Mean Corpuscular HGB 28.5 pg (26.0-34.0); Mean Corpuscular HGB Conc 31.9 g/dL (31.5-36.5); Mean Corpuscular Volume 89 fL (80-100); Mean Platelet Volume 11.9 fL (9.1-12.4); NEUTROPHILS ABSOLUTE AUTO 5.27 K/mm3 (1.96-9.15); NEUTROPHILS PERCENT AUTO 75 % (41-73); Platelet Count 114 K/mm3 (150-400); RDW Coefficient Variation 15.4 % (11.7-14.2); RDW Standard Deviation 51.3 fL (35.1-46.3); Red Blood Cell Count 4.14 M/mm3 (4.30-5.90)
[2019-12-28 15:44] LABS: Albumin, Blood 3.2 g/dL (3.4-5.0); Albumin/Globulin Ratio 0.9 (0.8-1.8); Bilirubin, Total 0.4 mg/dL (0.1-1.0); Bun/Creatinine Ratio 21.5 (12.0-20.0); Calcium, Blood 8.7 mg/dL (8.5-10.1); Creatinine, Blood 1.77 mg/dL (0.60-1.20); Globulin, Blood 3.4 g/dL (2.2-4.0); Potassium, Blood 5.2 mmol/L (3.5-5.5); Total Protein, Blood 6.6 g/dL (6.4-8.2); Troponin I 0.046 ng/mL (0.000-0.040)
[2019-12-28] MEDS ORDERED: URSODIOL PO (18:00)
[2019-12-28] MEDS ORDERED: SYNTHROID100 MC3 PO (18:01)
[2019-12-28] MEDS ORDERED: LOW DOSE ASPIRI81 M1 PO (18:01)
[2019-12-28] MEDS ORDERED: METOPROLOL TART25 MG PO (18:01)
[2019-12-28] MEDS ORDERED: TAMSULOSIN HCL0.4 M1 PO (18:03)
[2019-12-28 18:24] LABS: Creatine Kinase MB 2.4 ng/mL (0.0-3.6); Creatine Kinase MB Index 6.7 (0.0-4.0); Troponin I 0.046 ng/mL (0.000-0.040)
[2019-12-28] MEDS ORDERED: OLANZAPINE5 M1 PO (19:11)
[2019-12-28 19:44] LABS: International Normalized Ratio 1.06; Prothrombin Time Results 11.3 Sec (9.7-11.5)
[2019-12-29 03:26] LABS: Hematocrit 35.7 % (37.0-53.0); Hemoglobin 11.4 g/dL (13.5-17.5); Mean Corpuscular HGB 28.5 pg (26.0-34.0); Mean Corpuscular HGB Conc 31.9 g/dL (31.5-36.5); Mean Corpuscular Volume 89 fL (80-100); Mean Platelet Volume 11.9 fL (9.1-12.4); Platelet Count 100 K/mm3 (150-400); RDW Coefficient Variation 15.7 % (11.7-14.2); RDW Standard Deviation 51.1 fL (35.1-46.3)
[2019-12-29 03:44] LABS: Calcium, Blood 8.3 mg/dL (8.5-10.1); Creatinine, Blood 1.95 mg/dL (0.60-1.20); Potassium, Blood 4.8 mmol/L (3.5-5.5); Troponin I 0.043 ng/mL (0.000-0.040)
--- NOTE | 2019-12-29 06:13 | NUR ---
SHIFT SUMMARY PT ARRIVED FROM ED DURING SHIFT. PT ALERT AND ORIENTED UPON ARRIVAL. PT ABLE TO POSITION SELF IN BED. PT REPORTS CP AND HEADACHE T/O SHIFT. MEDICATED PER EMAR. HR STABLE. BP STABLE. OXYGEN SATURATION MAINTAINED ABOVE 92% ON RA. WILL CONTINUE TO MONITOR UNTIL REPORT GIVEN TO DAYSHIFT RN.
--- NOTE | 2019-12-29 13:34 | NUR ---
Pt resting in bed upon arrival. Pt reports current regimen is managing his pain. Engaged in therapeutic listening as Pt reports concerns regarding his current health. Pt reports being hopeful that if his kidneys improve then he will be able to have his cardiac procedure. Continued therapeutic listening. Discussed current code status and provided gentle education regarding life sustaing measures. Pt wishes to remain a full code. Educated Pt on distraction techniques to help manage anxiety. Ended visist to allow Pt to rest. Pt agreeable to continued visits. Spoke with Bedside NERY Leon and discussed case. Palliative Care will remain available.
--- NOTE | 2019-12-29 19:54 | NUR ---
NO ACUTE EVENTS THIS SHIFT. PATIENT CONTINUES TO COMPLAIN OF CONSISTENT CHEST PAIN, MIDLINE. PATIENT AT WORST ENDORSED 8/10 NON-RADIATING CHEST PAIN, IMPROVED WITH MORPHINE TO 4/10 AT BEST. HEPARIN DRIP RUNNING PER PHARMACY MANAGEMENT.
--- NOTE | 2019-12-30 05:52 | NUR ---
SHIFT SUMMARY PT A&O; RESPONDS APPROPRIATELY; COMPLIANT W/ CARE AND RESPECTFUL OF STAFF BUT HAS A FLAT AFFECT; VSS; C/O 8/10 CHEST PAIN T/O SHIFT; MORPHINE ADMINISTERED PER EMAR; O2 SATS >93 ON RA; USES URINAL IN BED; CALL LIGHT IN REACH; BED IN LOWEST POSITION; WILL CONTINUE TO MONITOR CLOSELY UNTIL HAND OFF TO DAY SHIFT RN.
--- NOTE | 2019-12-30 17:17 | NUR ---
NO ACUTE EVENTS THIS SHIFT. PATIENT CONTINUES TO COMPLAIN OF CHEST PAIN, AT WORST 7/10 THIS SHIFT, AT BEST 3/10 MIDLINE NON-RADIATING CHEST PAIN. PATIENT UP FOR MEALS IN RECLINER, SBA TOLERATING ACTIVITY WELL. PER DR. HALEY AFTER DISCUSSION WITH CARDIOLOGY, PLAN IS FOR COBRA TOMORROW TO [facility] FOR POSSIBLE STENT PLACEMENT. PATIENT ON ROOM AIR, HEPARIN DRIP CONTINUOUS, MONITORED BY PHARMACY.
--- NOTE | 2019-12-30 20:19 | NUR ---
1900 ASSUMED CARE OF PATIENT, SEE [facility] ASSESSMENT FOR FULL ASSESSMENT. PAIN HAS DECREASED SINCE MS GIVEN. BED IN LOW POSITION, CALL LIGHT IN REACH
[2019-12-31 02:06] LABS: BASOPHILS ABSOLUTE AUTO 0.03 K/mm3 (0.00-0.23); BASOPHILS PERCENT AUTO 0 % (0-2); EOSINOPHILS ABSOLUTE AUTO 0.06 K/mm3 (0.00-0.68); EOSINOPHILS PERCENT AUTO 1 % (0-6); Hematocrit 36.1 % (37.0-53.0); Hemoglobin 11.7 g/dL (13.5-17.5); IMMATURE GRAN ABSOLUTE AUTO 0.01 K/mm3 (0.00-0.10); IMMATURE GRAN PERCENT AUTO 0 % (0-1); LYMPHOCYTES PERCENT AUTO 14 % (21-46); MONOCYTES ABSOLUTE AUTO 0.47 K/mm3 (0.16-1.47); MONOCYTES PERCENT AUTO 7 % (4-13); Mean Corpuscular HGB Conc 32.4 g/dL (31.5-36.5); Mean Corpuscular Volume 89 fL (80-100); Mean Platelet Volume 12.3 fL (9.1-12.4); NEUTROPHILS ABSOLUTE AUTO 5.51 K/mm3 (1.96-9.15); NEUTROPHILS PERCENT AUTO 78 % (41-73); Platelet Count 93 K/mm3 (150-400); RDW Coefficient Variation 15.8 % (11.7-14.2); Red Blood Cell Count 4.04 M/mm3 (4.30-5.90); White Blood Cell Count 7.08 K/mm3 (4.00-11.30)
[2019-12-31 02:19] LABS: Bun/Creatinine Ratio 21.7 (12.0-20.0); Calcium, Blood 8.7 mg/dL (8.5-10.1); Creatinine, Blood 2.07 mg/dL (0.60-1.20); Potassium, Blood 5.4 mmol/L (3.5-5.5)
--- NOTE | 2019-12-31 05:28 | NUR ---
NO ADVERS CHANGES SINCE SHIFT ASSESSMENT, CP CONTROLLED WITH 4 MG IV MS EVERY 2 TO 3 HOURS. BED IN LOW POSTION, CALL LIGHT BY SIDE.
--- NOTE | 2019-12-31 08:00 | NUR ---
pt resting quietly in bed appears sleepy, but wakes easily, reports pain is ok at this time, a/ox3, but slow to respond, lungs are clear dim t/o, resp even and unlabord, no cough noted, sats 89 to 90%, hrr, tele in place running sr with pvc's per moniotor, see strip, iv site to rfa, site clear and patent, infusing hep gtt as ordered, btx4, abd flat soft nontender, voids without diff, skin has ecchymosis areas to fa's and is picking at right arm which made it bleed, dressing applied, maew, call light in reach.
--- NOTE | 2019-12-31 10:46 | NUR ---
medicated for pain, is sleepy, placed him on 3 liters 02 via n/c, call light in reach.
--- NOTE | 2019-12-31 17:18 | NUR ---
PT HAS BEEN TRANSFERRED TO [facility], FOR POSS BYPASS, REPORT WAS GIVEN TO ANKIT GABRIEL. PT LEFT VIA GURNEY WITH EMT FOR GROUND TRANSPORT WITH HEPERIN GTT INFUSING.
== END 2019-12-31 17:22 | disposition short-term general hospital (02) | DRG 302 ==
LOC: ER 15:07 → ERHOLD 18:41 → PCU 12-29 01:08
PROVIDERS: Emergency Medicine; Internal Medicine; ADMIT Internal Medicine
DX: I25.110 Atherosclerotic heart disease of native coronary artery with unstable angina pectoris (principal); I50.23 Acute on chronic systolic (congestive) heart failure; I13.0 Hypertensive heart and chronic kidney disease with heart failure and stage 1 through stage 4 chronic kidney disease, or unspecified chronic kidney disease; Z94.4 Liver transplant status; Z20.828 Contact with and (suspected) exposure to other viral communicable diseases; I25.5 Ischemic cardiomyopathy; N18.32 Chronic kidney disease, stage 3b; E11.22 Type 2 diabetes mellitus with diabetic chronic kidney disease; E03.9 Hypothyroidism, unspecified; D69.6 Thrombocytopenia, unspecified; G31.84 Mild cognitive impairment of uncertain or unknown etiology; D63.1 Anemia in chronic kidney disease; Z88.8 Allergy status to other drugs, medicaments and biological substances; Z79.899 Other long term (current) drug therapy; Z79.82 Long term (current) use of aspirin; Z86.19 Personal history of other infectious and parasitic diseases; Z86.718 Personal history of other venous thrombosis and embolism; Z87.891 Personal history of nicotine dependence; Z85.05 Personal history of malignant neoplasm of liver
CPT/HCPCS: 36415; 71045; 80048; 80053; 82550; 82553; 82947; 84484; 85025; 85027; 85610; 85730; 93005; 93010; 96374; 96375; 99285-25; A9270-GY; J1644; J1940; J2270; J7507; U0003